=== PATIENT | male | born 1940 | race Caucasian/White ===

== ENCOUNTER → 2017-11-07 07:04 | Outpatient (CLI) | payer MEDICARE, OTHER, SELFPAY ==
[2017-11-07 08:27] LABS: Add Manual Diff / Slide Review NO; Basophils Percent Auto 0.8 % (0-2); Eosinophils Percent Auto 12.7 % (2-4); Hematocrit 44.5 % (41-53); Hemoglobin 15.1 g/dL (13.5-17.5); Lymphocytes Percent Auto 20.9 % (25-40); Mean Corpuscular HGB Conc 33.8 % (30-36); Mean Corpuscular Volume 88.6 fL (80-100); Monocytes Percent Auto 11.7 % (3-14); Neutrophils Absolute Auto 4100 /uL (3000-5900); Neutrophils Percent Auto 53.9 % (50-75); Platelet Count 207 X10^3/uL (150-400); Red Blood Cell Count 5.02 X10^6/uL (4.5-5.9); Red Cell Distribution Width 13.8 % (11.6-14.8); White Blood Cell Count 7.5 X10^3/uL (4.5-11.0)
[2017-11-07 09:41] LABS: Alanine Aminotransferase 32 IU/L (21-72); Albumin 4.3 g/dL (3.5-5.0); Albumin Globulin Ratio 1.6 (1.0-2.8); Alkaline Phosphatase 93 U/L (38-126); Aspartate Aminotransferase 33 IU/L (17-59); BUN Creatinine Ratio 19.1 (6-22); Bilirubin Total 0.7 mg/dL (0.2-1.3); Blood Urea Nitrogen 21 mg/dL (9-20); Calcium 9.7 mg/dL (8.4-10.2); Carbon Dioxide 29 mmol/L (22-32); Chloride 99 mmol/L (98-107); Cholesterol 132 mg/dL (140-199); Estimated Glomerular Filt Rate > 60.0 mL/min (>60); Globulin 2.7 g/dL (1.7-4.1); Glucose 90 mg/dL (80-110); HDL Cholesterol 62 mg/dL (40-60); HEMOLYSIS < 15 (0-50); LDL Cholesterol Calculated 53 mg/dL (<100); Potassium 4.9 mmol/L (3.4-5.1); Sodium 138 mmol/L (137-145); Triglycerides 83 mg/dL (35-150)
[2017-11-07 10:13] LABS: Prostate Specific Antigen Scrn 4.47 ng/mL (0.1-4.0)
== END ==
PROVIDERS: PCP Family Medicine; Visit Provider Family Medicine
DX: E78.2 Mixed hyperlipidemia (principal); Z12.5 Encounter for screening for malignant neoplasm of prostate
CPT/HCPCS: 36415; 80053; 80061; 84443; 85025; G0103

== ENCOUNTER → 2018-01-02 12:18 | Outpatient (CLI) | payer MEDICARE, OTHER, SELFPAY ==
[2018-01-02 13:25] LABS: Thyroid Stimulating Hormone 2.86 uIU/mL (0.47-4.68)
[2018-01-05 15:44] LABS: PSA Free % 9 % (calc) (> 25); PSA, Total 3.4 ng/mL (< 4.1)
== END ==
PROVIDERS: PCP Family Medicine; Visit Provider Family Medicine
DX: R94.6 Abnormal results of thyroid function studies (principal)
CPT/HCPCS: 36415; 84153; 84154; 84443

== ENCOUNTER → 2018-07-05 07:35 | Outpatient (CLI) | payer MEDICARE, OTHER, SELFPAY ==
[2018-07-05 09:43] LABS: Thyroid Stimulating Hormone 2.56 uIU/mL (0.47-4.68)
== END ==
PROVIDERS: PCP Family Medicine; Visit Provider Family Medicine
DX: R94.6 Abnormal results of thyroid function studies (principal)
CPT/HCPCS: 36415; 84443

== ENCOUNTER → 2018-07-11 10:10 | Outpatient (CLI) | payer MEDICARE, OTHER, SELFPAY ==
--- NOTE | 2018-07-11 10:12 | DI.RAD.S_ITS ---
PROCEDURE: XR SHOULDER LT MIN 2V INDICATIONS: L shoulder imingement TECHNIQUE: 3 views of the shoulder were acquired. COMPARISON: None. FINDINGS: Bones: No fractures or dislocations. No suspicious bony lesions. Visualized ribs appear intact. There is moderate hyperostosis at the a.c. 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 Soft tissues: No suspicious soft tissue calcifications. 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 Dictated by: Jc Alex M.D. on 07/11/2018 at 10:34 Approved by: Jc Alex M.D. on 07/11/2018 at 10:34
== END ==
PROVIDERS: PCP Family Medicine; Visit Provider Hospitalist
DX: M75.42 Impingement syndrome of left shoulder (principal); M25.512 Pain in left shoulder
CPT/HCPCS: 73030

== ENCOUNTER 2018-09-07 09:00 | Outpatient (RCR) | payer MEDICARE, OTHER, SELFPAY ==
--- NOTE | 2018-08-09 16:14 | PT.OPPOC ---
Current Diagnoses Pain in left shoulder (08/09/18) Abnormal posture (08/09/18) Weakness (08/09/18) Provider Visit Care Team Role Provider Type Alexandro Georges MD Primary Care Provider Physician Specialty: Family Practice Address: [address] [place] [address], [id number] Email: [email or web address] Jesi Tarango MD Attending Provider Physician Specialty: Internal Medicine Address: [address] [place] [address], [id number] Email: Plan Of Care PT-OP-T Assessment and Plan Start: 08/09/18 15:16 Freq: Status: Active Protocol: Document 08/09/18 15:16 SAK (Rec: 08/10/18 16:13 SAK [id number]) Physical Therapy Assessment Rehab Potential Rehabilitation Potential Good Evaluation Complexity Number of Personal Factors/Comorbidities 1-2 Number of Body Systems Impaired 3 Clinical Presentation at Evaluation Stable Impairments Impairments Activity Tolerance Pain ROM Strength Goals Three Impairment weakness Alf Goal (LTG) Patient strength right shoulder 5/5 LTG Duration 10/09/18 Two Impairment has had to modify usual workout at gym due to pain Short Term Goal (STG) Patient able to tolerate HEP for shoulder strengthening and ROM without pain STG Duration 09/09/18 Tractor Operator Battery Goal (LTG) Patient to return to weight- lifting at gym without pain, demonstrating safe and correct form LTG Duration 10/09/18 One Impairment unable to reach overhead, out to the side, or behind his back Alf Goal (LTG) Patient able to reach overhead and behind his back for purposes of daily activities with full motion and without c /o pain. LTG Duration 10/09/18 Assessment Summary Assessment Patient presents to PT with function-limiting left shoulder pain after injury while lifting weights. He has signs and symptoms of left shoulder impingement with RC involvement. Feel postural dysfunction with forward head, rounded shoulders, protracted scapulae is contributory, as well as decreased general mobility throughout his thoracic spine and weakness of posterior chain musculature causing abnormal functioning of his left shoulder. Will benefit from PT to address these impairments and return to his active lifestyle safely . Physical Therapy Plan Frequency and Duration Frequency of Treatment 2x/Week Duration of Treatment 8 wks Plan of Care Start Date 08/09/18 Plan of Care End Date 10/09/18 Therapeutic Interventions Therapeutic Interventions Home Exercise Program Joint Mobilizations Manual Therapy Neuromuscular Re-education Patient/Caregiver Education Self-Care/Home Management Soft Tissue Mobilization Taping Therapeutic Activities Therapeutic Exercises Modalities Cold Pack/Ice Massage Electric Stimulation Hot Packs Iontophoresis Ultrasound Next Visit Focus/Plan Next Note Type Treatment Note Next Visit Plan Review HEP, postural education , ther ex for postural correction, shoulder ROM, shoulder and thoracic extension strengthening. Modalities as needed. Plan of Care Dates Plan of Care Start Date 08/09/18 Plan of Care End Date 10/09/18 Please Sign and Return: I have reviewed this Plan of Care and certify that the skilled therapy services above are required to meet the patient?s needs. Physician Signature Date Printed Name and Credentials Clinical Instructor Signature Printed Name and Credentials
--- NOTE | 2018-08-09 16:14 | PT.OIE ---
Current Diagnoses Pain in left shoulder (08/09/18) Abnormal posture (08/09/18) Weakness (08/09/18) Provider Visit Care Team Role Provider Type Alexandro Georges MD Primary Care Provider Physician Specialty: Family Practice Address: [address] [place] [address], [id number] Email: [email or web address] Jesi Tarango MD Attending Provider Physician Specialty: Internal Medicine Address: [address] [place] [address], [id number] Email: Physical Therapy Initial Evaluation PT-OP-A Visit Information Start: 08/09/18 15:16 Freq: Status: Active Protocol: Document 08/09/18 15:16 SAK (Rec: 08/10/18 16:13 SAK [id number]) Out-Patient Physical Therapy Visit Information Visit Information Visit Type Initial Evaluation Visit Start Time 15:15 Visit Stop Time 16:10 Total Visit Minutes 55 Visit Number 1 Number of LAB RN Visits 0 Evaluation Information Evaluation Date 08/09/18 Precautions Precautions [id number] PT-OP-B Current Condition Start: 08/09/18 15:16 Freq: Status: Active Protocol: Document 08/09/18 15:16 SAK (Rec: 08/09/18 16:02 SAK [id number]) Current Condition History of Current Condition Onset Date 2 months ago Current Complaints left shoulder pain History of Current Condition Was at gym, was doing standing chest press on cable machine with increased weight because he was feeling good. Has taken Alleve and used [place]. Iced for awhile but has quit. Some improvement since initial injury, but still hard to reach overhead or out to side. Still going to gym but has modified his exercises. Prior pain left shoulder 7-8 yrs ago, got better on its own . Denies numbness or tingling . Prior Treatments and Tests x-ray: No fractures or dislocations. 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 Treatment Goals Patient/Caregiver Goals Eliminate pain and return to full functional use of his left UE. Prior Functional Status Baseline Function- ADL's Independent Baseline Function- Mobility Independent Baseline Function- Gait independent no device Baseline Function- Work/School retired, able to use household tasks without difficulty Baseline Function- Recreation/Hobbies weight-lifting, gardening no restrictions Current Functional Impairments (Reported) Functional Limitations- ADL's painful Functional Limitations- Mobility/Gait independent no device Functional Limitations- Work/School household tasks requiring reaching overhead or out to side are painful, unable to do some Functional Limitations- Recreation/ Has modified weight-lifting ex Hobbies , some pain with gardening PT-OP-C Subjective Start: 08/09/18 15:16 Freq: Status: Active Protocol: Document 08/09/18 15:16 SAK (Rec: 08/10/18 16:13 [facility] [id number]) Patient Questionnaires Quick Dash- Upper Extremity Quick Dash UE Score 18 OP-PT Pain Assessment Location left shoulder Intensity 4 Scale Used Numeric (1 - 10) Description Aching Pressure Sharp Tender With Movement Frequency Frequent Pain Aggravating Factors Activity Other Pain Aggravating Factors reaching overhead, out to side , behind back Pain Alleviating Factors Inactivity Position Home Pain Medication Use Pain Medications Used No PT-OP-E Functional Tests Start: 08/09/18 15:16 Freq: Status: Active Protocol: Document 08/09/18 15:16 SAK (Rec: 08/10/18 16:13 [facility] [id number]) Functional Tests Apley's Scratch Test Action 1: The subject is instructed to touch the opposite shoulder with his/her hand. This motion checks Glenohumeral adduction, internal rotation , horizontal adduction and scapular protraction Action 2: The subject is instructed to place his/her arm overhead and reach behind the neck to touch his/her upper back. This motion checks Glenohumeral abduction, external rotation and scapular upward rotation and elevation. Action 3: The subject puts his/her hand on the lower back and reaches upward as far as possible. This motion checks glenohumeral adduction, internal rotation and scapular retraction with downward rotation Action 1- Left front of shoulder Action 1- Right back of shoulder Action 2- Left side of neck Action 2- Right T3 Action 3- Left L2 Action 3- Right T10 PT-OP-F Manual Assessment Start: 08/09/18 15:16 Freq: Status: Active Protocol: Document 08/09/18 15:16 SAK (Rec: 08/10/18 16:13 SAK [id number]) Manual Assessments Joint Mobility Assessment Joint Mobility Assessment Decreased inferior glide and posterior glide left shoulder PT-OP-H Neuro Start: 08/09/18 15:16 Freq: Status: Active Protocol: Document 08/09/18 15:16 SAK (Rec: 08/10/18 16:13 SAK [id number]) Sensation Evaluation Gross Sensation Gross Sensation WNL PT-OP-J Posture/Palpation/Skin Start: 08/09/18 15:16 Freq: Status: Active Protocol: Document 08/09/18 15:16 SAK (Rec: 08/10/18 16:13 SAK [id number]) Posture Evaluation Position Sitting Head/C-Spine Posture Forward Head T-Spine Posture Increased Kyphosis L-Spine Posture Flattened Shoulder Posture (L) Rounded (R) Rounded (L) Forward (R) Forward Scapula Posture (R) Protracted (L) Retracted Arm Posture (L) Internally Rotated (R) Internally Rotated Palpation Assessment Location left shoulder Palpation Location left RC insertion Palpation Findings Tenderness PT-OP-K Range of Motion Start: 08/09/18 15:16 Freq: Status: Active Protocol: Document 08/09/18 15:16 SAK (Rec: 08/10/18 16:13 [facility] [id number]) Cervical Spine Range of Motion Cervical Spine Active Comments WNL Shoulder Goniometric Range of Motion Shoulder Measured in Degrees Left Active Shoulder ROM WFL No Flexion 120 Extension 20 Abduction 115 External Rotation at 45 degrees 65 Abduction Internal Rotation 50 right Shoulder ROM WFL Yes External Rotation at 45 degrees 90 Abduction Internal Rotation 65 PT-OP-L Special Tests Start: 08/09/18 15:16 Freq: Status: Active Protocol: Document 08/09/18 15:16 SAK (Rec: 08/10/18 16:13 SAK [id number]) Special Tests Shoulder Special Tests IR/Horizontal ADD Impingement Test Results positive left [place] Impingement Test Results positive left Elevation Impingement Test Results positive left PT-OP-M Strength Start: 08/09/18 15:16 Freq: Status: Active Protocol: Document 08/09/18 15:16 SAK (Rec: 08/10/18 16:13 SAK [id number]) Shoulder Strength Shoulder Manual Muscle Testing Left Flexion 3- Fair- Extension 4- Good- Abduction (C5) 3- Fair- External Rotation 4- Good- Internal Rotation 4+ Good+ Right Flexion 5 Normal Extension 5 Normal Abduction (C5) 5 Normal External Rotation 5 Normal Internal Rotation 5 Normal Elbow/Forearm Strength Elbow and Forearm Manual Muscle Testing dusty Flexion (C6) 5 Normal Extension (C7) 5 Normal PT-OP-Q Treatments Start: 08/09/18 15:16 Freq: Status: Active Protocol: Document 08/09/18 15:16 [facility] (Rec: 08/10/18 16:13 [facility] [id number]) Self-Care/Home Management Treatment Education Patient Education Home Exercise Program PT-OP-R Modalities Start: 08/09/18 15:16 Freq: Status: Active Protocol: Document 08/09/18 15:16 [facility] (Rec: 08/10/18 16:13 [facility] [id number]) Hot Pack/Cold Pack Treatment Cold Pack Location left shoulder Patient Position Hooklying Treatment Duration (minutes) 10 Patient Tolerance Good PT-OP-T Assessment and Plan Start: 08/09/18 15:16 Freq: Status: Active Protocol: Document 08/09/18 15:16 [facility] (Rec: 08/10/18 16:13 [facility] [id number]) Physical Therapy Assessment Rehab Potential Rehabilitation Potential Good Evaluation Complexity Number of Personal Factors/Comorbidities 1-2 Number of Body Systems Impaired 3 Clinical Presentation at Evaluation Stable Impairments Impairments Activity Tolerance Pain ROM Strength Goals Three Impairment weakness Care Home Goal (LTG) Patient strength right shoulder 5/5 LTG Duration 10/09/18 Two Impairment has had to modify usual workout at gym due to pain Short Term Goal (STG) Patient able to tolerate HEP for shoulder strengthening and ROM without pain STG Duration 09/09/18 Care Home Goal (LTG) Patient to return to weight- lifting at gym without pain, demonstrating safe and correct form LTG Duration 10/09/18 One Impairment unable to reach overhead, out to the side, or 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 LTG Duration 10/09/18 Assessment Summary Assessment Patient presents to PT with function-limiting left shoulder pain after injury while lifting weights. He has signs and symptoms of left shoulder impingement with RC involvement. Feel postural dysfunction with forward head, rounded shoulders, protracted scapulae is contributory, as well as decreased general mobility throughout his thoracic spine and weakness of posterior chain musculature causing abnormal functioning of his left shoulder. Will benefit from PT to address these impairments and return to his active lifestyle safely . Physical Therapy Plan Frequency and Duration Frequency of Treatment 2x/Week Duration of Treatment 8 wks Plan of Care Start Date 08/09/18 Plan of Care End Date 10/09/18 Therapeutic Interventions Therapeutic Interventions Home Exercise Program Joint Mobilizations Manual Therapy Neuromuscular Re-education Patient/Caregiver Education Self-Care/Home Management Soft Tissue Mobilization Taping Therapeutic Activities Therapeutic Exercises Modalities Cold Pack/Ice Massage Electric Stimulation Hot Packs Iontophoresis Ultrasound Next Visit Focus/Plan Next Note Type Treatment Note Next Visit Plan Review HEP, postural education , ther ex for postural correction, shoulder ROM, shoulder and thoracic extension strengthening. Modalities as needed.
--- NOTE | 2018-08-14 17:10 | PT.OTN ---
Current Diagnoses Pain in left shoulder (08/14/18) Physical Therapy Treatment Note PT-OP-A Visit Information Start: 08/09/18 15:16 Freq: Status: Active Protocol: Document 08/14/18 12:20 EA (Rec: 08/14/18 12:56 EA [id number]) Out-Patient Physical Therapy Visit Information Visit Information Visit Type Treatment Note Visit Start Time 12:15 Visit Stop Time 13:00 Total Visit Minutes 53 Visit Number 2 PT-OP-B Current Condition Start: 08/09/18 15:16 Freq: Status: Active Protocol: Document 08/09/18 15:16 SAK (Rec: 08/09/18 16:02 SAK [id number]) Current Condition History of Current Condition Onset Date 2 months ago Current Complaints left shoulder pain History of Current Condition Was at gym, was doing standing chest press on cable machine with increased weight because he was feeling good. Has taken Alleve and used [place]. Iced for awhile but has quit. Some improvement since initial injury, but still hard to reach overhead or out to side. Still going to gym but has modified his exercises. Prior pain left shoulder 7-8 yrs ago, got better on its own . Denies numbness or tingling . Prior Treatments and Tests x-ray: No fractures or dislocations. 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 Treatment Goals Patient/Caregiver Goals Eliminate pain and return to full functional use of his left UE. Prior Functional Status Baseline Function- ADL's Independent Baseline Function- Mobility Independent Baseline Function- Gait independent no device Baseline Function- Work/School retired, able to use household tasks without difficulty Baseline Function- Recreation/Hobbies weight-lifting, gardening no restrictions Current Functional Impairments (Reported) Functional Limitations- ADL's painful Functional Limitations- Mobility/Gait independent no device Functional Limitations- Work/School household tasks requiring reaching overhead or out to side are painful, unable to do some Functional Limitations- Recreation/ Has modified weight-lifting ex Hobbies , some pain with gardening PT-OP-C Subjective Start: 08/09/18 15:16 Freq: Status: Active Protocol: Document 08/14/18 12:20 EA (Rec: 08/14/18 12:56 EA [id number]) OP-PT Subjective Patient Comments Patient Comments Pt reports back to gym and perform all exercises except cable chest press; states unable to sleep to left shoulder side but pain does not bother while sleeping on his back. PT-OP-E Functional Tests Start: 08/09/18 15:16 Freq: Status: Active Protocol: Document 08/09/18 15:16 SAK (Rec: 08/10/18 16:13 SAK [id number]) Functional Tests Apley's Scratch Test Action 1: The subject is instructed to touch the opposite shoulder with his/her hand. This motion checks Glenohumeral adduction, internal rotation , horizontal adduction and scapular protraction Action 2: The subject is instructed to place his/her arm overhead and reach behind the neck to touch his/her upper back. This motion checks Glenohumeral abduction, external rotation and scapular upward rotation and elevation. Action 3: The subject puts his/her hand on the lower back and reaches upward as far as possible. This motion checks glenohumeral adduction, internal rotation and scapular retraction with downward rotation Action 1- Left front of shoulder Action 1- Right back of shoulder Action 2- Left side of neck Action 2- Right T3 Action 3- Left L2 Action 3- Right T10 PT-OP-F Manual Assessment Start: 08/09/18 15:16 Freq: Status: Active Protocol: Document 08/09/18 15:16 SAK (Rec: 08/10/18 16:13 SAK [id number]) Manual Assessments Joint Mobility Assessment Joint Mobility Assessment Decreased inferior glide and posterior glide left shoulder PT-OP-H Neuro Start: 08/09/18 15:16 Freq: Status: Active Protocol: Document 08/09/18 15:16 SAK (Rec: 08/10/18 16:13 SAK [id number]) Sensation Evaluation Gross Sensation Gross Sensation WNL PT-OP-J Posture/Palpation/Skin Start: 08/09/18 15:16 Freq: Status: Active Protocol: Document 08/09/18 15:16 SAK (Rec: 08/10/18 16:13 SAK [id number]) Posture Evaluation Position Sitting Head/C-Spine Posture Forward Head T-Spine Posture Increased Kyphosis L-Spine Posture Flattened Shoulder Posture (L) Rounded (R) Rounded (L) Forward (R) Forward Scapula Posture (R) Protracted (L) Retracted Arm Posture (L) Internally Rotated (R) Internally Rotated Palpation Assessment Location left shoulder Palpation Location left RC insertion Palpation Findings Tenderness PT-OP-K Range of Motion Start: 08/09/18 15:16 Freq: Status: Active Protocol: Document 08/09/18 15:16 SAK (Rec: 08/10/18 16:13 SAK [id number]) Cervical Spine Range of Motion Cervical Spine Active Comments WNL Shoulder Goniometric Range of Motion Shoulder Measured in Degrees Left Active Shoulder ROM WFL No Flexion 120 Extension 20 Abduction 115 External Rotation at 45 degrees 65 Abduction Internal Rotation 50 right Shoulder ROM WFL Yes External Rotation at 45 degrees 90 Abduction Internal Rotation 65 PT-OP-L Special Tests Start: 08/09/18 15:16 Freq: Status: Active Protocol: Document 08/09/18 15:16 SAK (Rec: 08/10/18 16:13 SAK [id number]) Special Tests Shoulder Special Tests IR/Horizontal ADD Impingement Test Results positive left [place] Impingement Test Results positive left Elevation Impingement Test Results positive left PT-OP-M Strength Start: 08/09/18 15:16 Freq: Status: Active Protocol: Document 08/09/18 15:16 SAK (Rec: 08/10/18 16:13 SAK [id number]) Shoulder Strength Shoulder Manual Muscle Testing Left Flexion 3- Fair- Extension 4- Good- Abduction (C5) 3- Fair- External Rotation 4- Good- Internal Rotation 4+ Good+ Right Flexion 5 Normal Extension 5 Normal Abduction (C5) 5 Normal External Rotation 5 Normal Internal Rotation 5 Normal Elbow/Forearm Strength Elbow and Forearm Manual Muscle Testing dusty Flexion (C6) 5 Normal Extension (C7) 5 Normal PT-OP-Q Treatments Start: 08/09/18 15:16 Freq: Status: Active Protocol: Document 08/14/18 12:58 EA (Rec: 08/14/18 13:03 EA [id number]) Cardio Equipment Upper Body Ergometer (UBE) Duration (Minutes) 5 Height 5 Gym Equipment Cable Column (Body Solid) 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 Resistance 30# Reps/Time x 15 reps Lat Pull Down Resistance 30# Reps/Time x15 reps x 2 Therapeutic Exercises Prone Exercises 1 Prone Exercise Name T-ball: thoracic ext, shoulder T- and Y (scap adduction) Side bilateral Reps/Minutes x 15 reps Standing Exercises 1 Standing Exercise Name wall posture: T-bar shoulder flexion Side bilateral Reps/Minutes x 15 reps Comments pain free range Manual Therapy Treatment Soft Tissue Mobilization 1 Body Location anterior shoulder RTC insertion Mobilization Type Cross-Friction Myofascial Release Intensity/Depth Moderate Body Position Hooklying PT-OP-R Modalities Start: 08/09/18 15:16 Freq: Status: Active Protocol: Document 08/14/18 12:58 EA (Rec: 08/14/18 13:03 EA [id number]) Hot Pack/Cold Pack Treatment Cold Pack Location left shoulder Patient Position Hooklying Treatment Duration (minutes) 10 Patient Tolerance Good Ultrasound Therapy Treatment Left Anterior Shoulder Treatment Duration (minutes) 8 Patient Position Supine Coupling Medium Ultrasound Gel Frequency Setting (mHz) 1 Mode Setting Pulsed Duty Cycle 50% Intensity Setting (w/cm2) 1.2 PT-OP-T Assessment and Plan Start: 08/09/18 15:16 Freq: Status: Active Protocol: Document 08/14/18 12:58 EA (Rec: 08/14/18 13:03 EA [id number]) Physical Therapy Assessment Assessment Summary Assessment Pt requires constant verbal and tactile cues for posture during shoulder exercises. Physical Therapy Plan Next Visit Focus/Plan Next Note Type Treatment Note
--- NOTE | 2018-08-17 15:19 | PT.OTN ---
Current Diagnoses Pain in left shoulder (08/17/18) Physical Therapy Treatment Note PT-OP-A Visit Information Start: 08/09/18 15:16 Freq: Status: Active Protocol: Document 08/17/18 15:07 EA (Rec: 08/17/18 15:17 EA [id number]) Out-Patient Physical Therapy Visit Information Visit Information Visit Type Treatment Note Visit Start Time 14:30 Visit Stop Time 15:15 Visit Number 3 PT-OP-B Current Condition Start: 08/09/18 15:16 Freq: Status: Active Protocol: Document 08/09/18 15:16 SAK (Rec: 08/09/18 16:02 SAK [id number]) Current Condition History of Current Condition Onset Date 2 months ago Current Complaints left shoulder pain History of Current Condition Was at gym, was doing standing chest press on cable machine with increased weight because he was feeling good. Has taken Alleve and used [employer]. Iced for awhile but has quit. Some improvement since initial injury, but still hard to reach overhead or out to side. Still going to gym but has modified his exercises. Prior pain left shoulder 7-8 yrs ago, got better on its own . Denies numbness or tingling . Prior Treatments and Tests x-ray: No fractures or dislocations. 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 Treatment Goals Patient/Caregiver Goals Eliminate pain and return to full functional use of his left UE. Prior Functional Status Baseline Function- ADL's Independent Baseline Function- Mobility Independent Baseline Function- Gait independent no device Baseline Function- Work/School retired, able to use household tasks without difficulty Baseline Function- Recreation/Hobbies weight-lifting, gardening no restrictions Current Functional Impairments (Reported) Functional Limitations- ADL's painful Functional Limitations- Mobility/Gait independent no device Functional Limitations- Work/School household tasks requiring reaching overhead or out to side are painful, unable to do some Functional Limitations- Recreation/ Has modified weight-lifting ex Hobbies , some pain with gardening PT-OP-C Subjective Start: 08/09/18 15:16 Freq: Status: Active Protocol: Document 08/17/18 15:07 CASEY (Rec: 08/17/18 15:17 [id number]) OP-PT Subjective Patient Comments Patient Comments Pt reports It's feeling a little better. PT-OP-E Functional Tests Start: 08/09/18 15:16 Freq: Status: Active Protocol: Document 08/09/18 15:16 [facility] (Rec: 08/10/18 16:13 [facility] [id number]) Functional Tests Apley's Scratch Test Action 1: The subject is instructed to touch the opposite shoulder with his/her hand. This motion checks Glenohumeral adduction, internal rotation , horizontal adduction and scapular protraction Action 2: The subject is instructed to place his/her arm overhead and reach behind the neck to touch his/her upper back. This motion checks Glenohumeral abduction, external rotation and scapular upward rotation and elevation. Action 3: The subject puts his/her hand on the lower back and reaches upward as far as possible. This motion checks glenohumeral adduction, internal rotation and scapular retraction with downward rotation Action 1- Left front of shoulder Action 1- Right back of shoulder Action 2- Left side of neck Action 2- Right T3 Action 3- Left L2 Action 3- Right T10 PT-OP-F Manual Assessment Start: 08/09/18 15:16 Freq: Status: Active Protocol: Document 08/09/18 15:16 [facility] (Rec: 08/10/18 16:13 [facility] [id number]) Manual Assessments Joint Mobility Assessment Joint Mobility Assessment Decreased inferior glide and posterior glide left shoulder PT-OP-H Neuro Start: 08/09/18 15:16 Freq: Status: Active Protocol: Document 08/09/18 15:16 [facility] (Rec: 08/10/18 16:13 [facility] [id number]) Sensation Evaluation Gross Sensation Gross Sensation WNL PT-OP-J Posture/Palpation/Skin Start: 08/09/18 15:16 Freq: Status: Active Protocol: Document 08/09/18 15:16 [facility] (Rec: 08/10/18 16:13 [facility] [id number]) Posture Evaluation Position Sitting Head/C-Spine Posture Forward Head T-Spine Posture Increased Kyphosis L-Spine Posture Flattened Shoulder Posture (L) Rounded (R) Rounded (L) Forward (R) Forward Scapula Posture (R) Protracted (L) Retracted Arm Posture (L) Internally Rotated (R) Internally Rotated Palpation Assessment Location left shoulder Palpation Location left RC insertion Palpation Findings Tenderness PT-OP-K Range of Motion Start: 08/09/18 15:16 Freq: Status: Active Protocol: Document 08/09/18 15:16 SAK (Rec: 08/10/18 16:13 SAK [id number]) Cervical Spine Range of Motion Cervical Spine Active Comments WNL Shoulder Goniometric Range of Motion Shoulder Measured in Degrees Left Active Shoulder ROM WFL No Flexion 120 Extension 20 Abduction 115 External Rotation at 45 degrees 65 Abduction Internal Rotation 50 right Shoulder ROM WFL Yes External Rotation at 45 degrees 90 Abduction Internal Rotation 65 PT-OP-L Special Tests Start: 08/09/18 15:16 Freq: Status: Active Protocol: Document 08/09/18 15:16 SAK (Rec: 08/10/18 16:13 SAK [id number]) Special Tests Shoulder Special Tests IR/Horizontal ADD Impingement Test Results positive left [place] Impingement Test Results positive left Elevation Impingement Test Results positive left PT-OP-M Strength Start: 08/09/18 15:16 Freq: Status: Active Protocol: Document 08/09/18 15:16 SAK (Rec: 08/10/18 16:13 SAK [id number]) Shoulder Strength Shoulder Manual Muscle Testing Left Flexion 3- Fair- Extension 4- Good- Abduction (C5) 3- Fair- External Rotation 4- Good- Internal Rotation 4+ Good+ Right Flexion 5 Normal Extension 5 Normal Abduction (C5) 5 Normal External Rotation 5 Normal Internal Rotation 5 Normal Elbow/Forearm Strength Elbow and Forearm Manual Muscle Testing dusty Flexion (C6) 5 Normal Extension (C7) 5 Normal PT-OP-Q Treatments Start: 08/09/18 15:16 Freq: Status: Active Protocol: Document 08/17/18 15:07 EA (Rec: 08/17/18 15:17 EA [id number]) Cardio Equipment Upper Body Ergometer (UBE) Duration (Minutes) 5 Height 5 Therapeutic Exercises Prone Exercises 1 Prone Exercise Name T-ball: thoracic ext, shoulder T- and Y (scap adduction) Side bilateral Reps/Minutes x 15 reps Standing Exercises 4 Standing Exercise Name Wall shoulder press: T-bar Resistance 2# Reps/Minutes x 12 reps 3 Standing Exercise Name T-bar Thoracic extension Reps/Minutes x 12 reps x 2 sets 2 Standing Exercise Name Shoulder ER/IR Resistance Lv 1 Reps/Minutes x 12 reps x 2 sets 1 Standing Exercise Name wall posture: T-bar shoulder flexion Side bilateral Resistance 2# Reps/Minutes x 15 reps x 2 sets Comments pain free range Manual Therapy Treatment Soft Tissue Mobilization 1 Body Location anteruior shoulder RTC insertion Mobilization Type Cross-Friction Myofascial Release Intensity/Depth Moderate Body Position Hooklying PT-OP-R Modalities Start: 08/09/18 15:16 Freq: Status: Active Protocol: Document 08/17/18 15:07 EA (Rec: 08/17/18 15:17 EA [id number]) Hot Pack/Cold Pack Treatment Cold Pack Location left shoulder Patient Position Hooklying Treatment Duration (minutes) 10 Patient Tolerance Good PT-OP-T Assessment and Plan Start: 08/09/18 15:16 Freq: Status: Active Protocol: Document 08/17/18 15:07 EA (Rec: 08/17/18 15:17 EA [id number]) Physical Therapy Assessment Assessment Summary Assessment Tolerated treatment well with mild discomfort during shoulder press. Physical Therapy Plan Next Visit Focus/Plan Next Note Type Treatment Note Next Visit Plan cont. with current plan.
--- NOTE | 2018-08-22 15:35 | PT.OTN ---
Current Diagnoses Pain in left shoulder (08/22/18) Physical Therapy Treatment Note PT-OP-A Visit Information Start: 08/09/18 15:16 Freq: Status: Active Protocol: Document 08/22/18 15:26 SA (Rec: 08/22/18 15:35 SA [id number]) Out-Patient Physical Therapy Visit Information Visit Information Visit Type Treatment Note Visit Start Time 15:18 Total Visit Minutes 48 Visit Number 4 Number of CLINICAL MEDICAL ASSISTANT Visits 1 PT-OP-B Current Condition Start: 08/09/18 15:16 Freq: Status: Active Protocol: Document 08/09/18 15:16 SAK (Rec: 08/09/18 16:02 SAK [id number]) Current Condition History of Current Condition Onset Date 2 months ago Current Complaints left shoulder pain History of Current Condition Was at gym, was doing standing chest press on cable machine with increased weight because he was feeling good. Has taken Alleve and used [place]. Iced for awhile but has quit. Some improvement since initial injury, but still hard to reach overhead or out to side. Still going to gym but has modified his exercises. Prior pain left shoulder 7-8 yrs ago, got better on its own . Denies numbness or tingling . Prior Treatments and Tests x-ray: No fractures or dislocations. 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 Treatment Goals Patient/Caregiver Goals Eliminate pain and return to full functional use of his left UE. Prior Functional Status Baseline Function- ADL's Independent Baseline Function- Mobility Independent Baseline Function- Gait independent no device Baseline Function- Work/School retired, able to use household tasks without difficulty Baseline Function- Recreation/Hobbies weight-lifting, gardening no restrictions Current Functional Impairments (Reported) Functional Limitations- ADL's painful Functional Limitations- Mobility/Gait independent no device Functional Limitations- Work/School household tasks requiring reaching overhead or out to side are painful, unable to do some Functional Limitations- Recreation/ Has modified weight-lifting ex Hobbies , some pain with gardening PT-OP-C Subjective Start: 08/09/18 15:16 Freq: Status: Active Protocol: Document 08/22/18 15:26 SA (Rec: 08/22/18 15:35 SA [id number]) OP-PT Subjective Patient Comments Patient Comments Pt states he is improving, was able to sleep on L side last night, Doing HEP daily. PT-OP-E Functional Tests Start: 08/09/18 15:16 Freq: Status: Active Protocol: Document 08/09/18 15:16 [facility] (Rec: 08/10/18 16:13 [facility] [id number]) Functional Tests Apley's Scratch Test Action 1: The subject is instructed to touch the opposite shoulder with his/her hand. This motion checks Glenohumeral adduction, internal rotation , horizontal adduction and scapular protraction Action 2: The subject is instructed to place his/her arm overhead and reach behind the neck to touch his/her upper back. This motion checks Glenohumeral abduction, external rotation and scapular upward rotation and elevation. Action 3: The subject puts his/her hand on the lower back and reaches upward as far as possible. This motion checks glenohumeral adduction, internal rotation and scapular retraction with downward rotation Action 1- Left front of shoulder Action 1- Right back of shoulder Action 2- Left side of neck Action 2- Right T3 Action 3- Left L2 Action 3- Right T10 PT-OP-F Manual Assessment Start: 08/09/18 15:16 Freq: Status: Active Protocol: Document 08/09/18 15:16 [facility] (Rec: 08/10/18 16:13 [facility] [id number]) Manual Assessments Joint Mobility Assessment Joint Mobility Assessment Decreased inferior glide and posterior glide left shoulder PT-OP-H Neuro Start: 08/09/18 15:16 Freq: Status: Active Protocol: Document 08/09/18 15:16 [facility] (Rec: 08/10/18 16:13 [facility] [id number]) Sensation Evaluation Gross Sensation Gross Sensation WNL PT-OP-J Posture/Palpation/Skin Start: 08/09/18 15:16 Freq: Status: Active Protocol: Document 08/09/18 15:16 [facility] (Rec: 08/10/18 16:13 [facility] [id number]) Posture Evaluation Position Sitting Head/C-Spine Posture Forward Head T-Spine Posture Increased Kyphosis L-Spine Posture Flattened Shoulder Posture (L) Rounded (R) Rounded (L) Forward (R) Forward Scapula Posture (R) Protracted (L) Retracted Arm Posture (L) Internally Rotated (R) Internally Rotated Palpation Assessment Location left shoulder Palpation Location left RC insertion Palpation Findings Tenderness PT-OP-K Range of Motion Start: 08/09/18 15:16 Freq: Status: Active Protocol: Document 08/09/18 15:16 SAK (Rec: 08/10/18 16:13 SAK [id number]) Cervical Spine Range of Motion Cervical Spine Active Comments WNL Shoulder Goniometric Range of Motion Shoulder Measured in Degrees Left Active Shoulder ROM WFL No Flexion 120 Extension 20 Abduction 115 External Rotation at 45 degrees 65 Abduction Internal Rotation 50 right Shoulder ROM WFL Yes External Rotation at 45 degrees 90 Abduction Internal Rotation 65 PT-OP-L Special Tests Start: 08/09/18 15:16 Freq: Status: Active Protocol: Document 08/09/18 15:16 SAK (Rec: 08/10/18 16:13 SAK [id number]) Special Tests Shoulder Special Tests IR/Horizontal ADD Impingement Test Results positive left [place] Impingement Test Results positive left Elevation Impingement Test Results positive left PT-OP-M Strength Start: 08/09/18 15:16 Freq: Status: Active Protocol: Document 08/09/18 15:16 [facility] (Rec: 08/10/18 16:13 [facility] [id number]) Shoulder Strength Shoulder Manual Muscle Testing Left Flexion 3- Fair- Extension 4- Good- Abduction (C5) 3- Fair- External Rotation 4- Good- Internal Rotation 4+ Good+ Right Flexion 5 Normal Extension 5 Normal Abduction (C5) 5 Normal External Rotation 5 Normal Internal Rotation 5 Normal Elbow/Forearm Strength Elbow and Forearm Manual Muscle Testing dusty Flexion (C6) 5 Normal Extension (C7) 5 Normal PT-OP-Q Treatments Start: 08/09/18 15:16 Freq: Status: Active Protocol: Document 08/22/18 15:26 SA (Rec: 08/22/18 15:35 SA [email or web address]) Cardio Equipment Upper Body Ergometer (UBE) Duration (Minutes) 5 RPM 65 Height fwd/bkw Gym Equipment Cable Column (Body Solid) Rows Details semi wide greenskeeper supervisor Resistance 30# Reps/Time x 15 reps Lat Pull Down Resistance 30# Reps/Time x15 reps x 2 Therapeutic Exercises Supine Exercises Serratus punch Side left Resistance 2# Reps/Minutes 15x Prone Exercises 1 Prone Exercise Name T-ball: thoracic ext, shoulder T- and Y (scap adduction) Side bilateral Reps/Minutes x 15 reps Standing Exercises 4 Standing Exercise Name Wall shoulder press: T-bar Resistance 2# Reps/Minutes 15x 3 Standing Exercise Name T-bar Thoracic extension Reps/Minutes x 12 reps x 2 sets 2 Standing Exercise Name Shoulder ER/IR Resistance Lv 2 Reps/Minutes x 12 reps x 2 sets Comments Cues for form 1 Standing Exercise Name wall posture: T-bar shoulder flexion Side bilateral Resistance 2# Reps/Minutes x 15 reps x 2 sets Comments pain free range Manual Therapy Treatment Soft Tissue Mobilization 1 Body Location anterior shoulder RTC insertion Mobilization Type Cross-Friction Myofascial Release Intensity/Depth Moderate Body Position Hooklying PT-OP-R Modalities Start: 08/09/18 15:16 Freq: Status: Active Protocol: Document 08/22/18 15:26 SA (Rec: 08/22/18 15:35 SA [email or web address]) Hot Pack/Cold Pack Treatment Cold Pack Location left shoulder Patient Position Hooklying Treatment Duration (minutes) 10 Patient Tolerance Good PT-OP-T Assessment and Plan Start: 08/09/18 15:16 Freq: Status: Active Protocol: Document 08/22/18 15:26 SA (Rec: 08/22/18 15:35 SA [email or web address]) Physical Therapy Assessment Assessment Summary Assessment Pt tolerated exercise well, has been doing a lot of yard work without L shld pain. Needs tactile cues for IR/ER and scap protraction exercise. Physical Therapy Plan Next Visit Focus/Plan Next Note Type Treatment Note Next Visit Plan Cont to progress shoulder strengthening program.
--- NOTE | 2018-08-29 14:50 | PT.OTN ---
Current Diagnoses Pain in left shoulder (09/01/18) Physical Therapy Treatment Note PT-OP-A Visit Information Start: 08/09/18 15:16 Freq: Status: Active Protocol: Document 08/29/18 13:44 LRN (Rec: 08/29/18 14:50 LRN [id number]) Out-Patient Physical Therapy Visit Information Visit Information Visit Type Treatment Note Visit Start Time 13:44 Visit Stop Time 14:32 Total Visit Minutes 48 Visit Number 5 Number of SALES COUNSELOR Visits 1 Evaluation Information Evaluation Date 08/09/18 Precautions Precautions [place] PT-OP-B Current Condition Start: 08/09/18 15:16 Freq: Status: Active Protocol: Document 08/09/18 15:16 SAK (Rec: 08/09/18 16:02 SAK [id number]) Current Condition History of Current Condition Onset Date 2 months ago Current Complaints left shoulder pain History of Current Condition Was at gym, was doing standing chest press on cable machine with increased weight because he was feeling good. Has taken Alleve and used [employer]. Iced for awhile but has quit. Some improvement since initial injury, but still hard to reach overhead or out to side. Still going to gym but has modified his exercises. Prior pain left shoulder 7-8 yrs ago, got better on its own . Denies numbness or tingling . Prior Treatments and Tests x-ray: No fractures or dislocations. 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 Treatment Goals Patient/Caregiver Goals Eliminate pain and return to full functional use of his left UE. Prior Functional Status Baseline Function- ADL's Independent Baseline Function- Mobility Independent Baseline Function- Gait independent no device Baseline Function- Work/School retired, able to use household tasks without difficulty Baseline Function- Recreation/Hobbies weight-lifting, gardening no restrictions Current Functional Impairments (Reported) Functional Limitations- ADL's painful Functional Limitations- Mobility/Gait independent no device Functional Limitations- Work/School household tasks requiring reaching overhead or out to side are painful, unable to do some Functional Limitations- Recreation/ Has modified weight-lifting ex Hobbies , some pain with gardening PT-OP-C Subjective Start: 08/09/18 15:16 Freq: Status: Active Protocol: Document 08/29/18 13:44 LRN (Rec: 08/29/18 14:50 LRN [id number]) OP-PT Subjective Patient Comments Patient Comments States he is better because the pain is less. PT-OP-E Functional Tests Start: 08/09/18 15:16 Freq: Status: Active Protocol: Document 08/09/18 15:16 SAK (Rec: 08/10/18 16:13 [facility] [id number]) Functional Tests Apley's Scratch Test Action 1: The subject is instructed to touch the opposite shoulder with his/her hand. This motion checks Glenohumeral adduction, internal rotation , horizontal adduction and scapular protraction Action 2: The subject is instructed to place his/her arm overhead and reach behind the neck to touch his/her upper back. This motion checks Glenohumeral abduction, external rotation and scapular upward rotation and elevation. Action 3: The subject puts his/her hand on the lower back and reaches upward as far as possible. This motion checks glenohumeral adduction, internal rotation and scapular retraction with downward rotation Action 1- Left front of shoulder Action 1- Right back of shoulder Action 2- Left side of neck Action 2- Right T3 Action 3- Left L2 Action 3- Right T10 PT-OP-F Manual Assessment Start: 08/09/18 15:16 Freq: Status: Active Protocol: Document 08/09/18 15:16 SAK (Rec: 08/10/18 16:13 [facility] [id number]) Manual Assessments Joint Mobility Assessment Joint Mobility Assessment Decreased inferior glide and posterior glide left shoulder PT-OP-H Neuro Start: 08/09/18 15:16 Freq: Status: Active Protocol: Document 08/09/18 15:16 SAK (Rec: 08/10/18 16:13 [facility] [id number]) Sensation Evaluation Gross Sensation Gross Sensation WNL PT-OP-J Posture/Palpation/Skin Start: 08/09/18 15:16 Freq: Status: Active Protocol: Document 08/09/18 15:16 SAK (Rec: 08/10/18 16:13 SAK [id number]) Posture Evaluation Position Sitting Head/C-Spine Posture Forward Head T-Spine Posture Increased Kyphosis L-Spine Posture Flattened Shoulder Posture (L) Rounded (R) Rounded (L) Forward (R) Forward Scapula Posture (R) Protracted (L) Retracted Arm Posture (L) Internally Rotated (R) Internally Rotated Palpation Assessment Location left shoulder Palpation Location left RC insertion Palpation Findings Tenderness PT-OP-K Range of Motion Start: 08/09/18 15:16 Freq: Status: Active Protocol: Document 08/09/18 15:16 SAK (Rec: 08/10/18 16:13 SAK [id number]) Cervical Spine Range of Motion Cervical Spine Active Comments WNL Shoulder Goniometric Range of Motion Shoulder Measured in Degrees Left Active Shoulder ROM WFL No Flexion 120 Extension 20 Abduction 115 External Rotation at 45 degrees 65 Abduction Internal Rotation 50 right Shoulder ROM WFL Yes External Rotation at 45 degrees 90 Abduction Internal Rotation 65 PT-OP-L Special Tests Start: 08/09/18 15:16 Freq: Status: Active Protocol: Document 08/09/18 15:16 SAK (Rec: 08/10/18 16:13 SAK [id number]) Special Tests Shoulder Special Tests IR/Horizontal ADD Impingement Test Results positive left [place] Impingement Test Results positive left Elevation Impingement Test Results positive left PT-OP-M Strength Start: 08/09/18 15:16 Freq: Status: Active Protocol: Document 08/09/18 15:16 SAK (Rec: 08/10/18 16:13 [facility] [id number]) Shoulder Strength Shoulder Manual Muscle Testing Left Flexion 3- Fair- Extension 4- Good- Abduction (C5) 3- Fair- External Rotation 4- Good- Internal Rotation 4+ Good+ Right Flexion 5 Normal Extension 5 Normal Abduction (C5) 5 Normal External Rotation 5 Normal Internal Rotation 5 Normal Elbow/Forearm Strength Elbow and Forearm Manual Muscle Testing dusty Flexion (C6) 5 Normal Extension (C7) 5 Normal PT-OP-Q Treatments Start: 08/09/18 15:16 Freq: Status: Active Protocol: Document 08/29/18 13:44 LRN (Rec: 08/29/18 14:50 LRN [id number]) Cardio Equipment Upper Body Ergometer (UBE) Duration (Minutes) 6 RPM 65 Height fwd/bkw Gym Equipment Cable Column (Body Solid) 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 30# Reps/Time x 15 reps x 2 Lat Pull Down Resistance 30# Reps/Time x15 reps x 2 Therapeutic Exercises Supine Exercises Pec stretch Supine Exercise Name Pec stretch on 1/2 roll Side bilateral Equipment Used 1/2 roll Reps/Minutes Hold f/b 15x thoracic ext, 2 sets Comments AP of L scapula/thoracic wall (stab at scapula) during active thoracic ext Shoulder AB Supine Exercise Name shoulder AB with elbow flexed Side left Resistance Lev 1 T-Band Reps/Minutes 10x3 Serratus punch Side left Resistance 2# Reps/Minutes 10x3 Sitting Exercises Levator Scapula stretch Sitting Exercise Name Levator Scap stretch w/L arm behind back Side left Reps/Minutes 60 sec hold x 2 Comments Extra time taken to perform stretch properly. Thoracic Ext Sitting Exercise Name Thoacic ext with mirror for visual feedback Equipment Used Mirror Reps/Minutes 10 x 3 Comments Extra time for training of thoracic ext Other Exercises 4-Pt Thoracic Ext Other Exercise Name T2-T7 Thoracic ext Isometric Reps/Minutes 3' Comments Extra time taken for teaching of stretch Self-Care/Home Management Treatment Education Patient Education Home Exercise Program Activities Self-Care/Home Management Activities Issued & reviewed HEP: L Levater Scapular stretch & Pec stretch on/off 1/2 roll. PT-OP-R Modalities Start: 08/09/18 15:16 Freq: Status: Active Protocol: Document 08/29/18 13:44 LRN (Rec: 08/29/18 14:50 LRN [id number]) Hot Pack/Cold Pack Treatment Cold Pack Location left shoulder Patient Position Sitting Treatment Duration (minutes) 10 Patient Tolerance Good Comments Cryotherapy performed during production of HEP and review of HEP. PT-OP-T Assessment and Plan Start: 08/09/18 15:16 Freq: Status: Active Protocol: Document 08/29/18 13:44 LRN (Rec: 08/29/18 14:50 LRN [id number]) Physical Therapy Assessment Assessment Summary Assessment L posterior acromion pain posturally related. Pt needs further posture training/ strengthening to minimize soft tissue impingement, and improving L shoulder strength/ stability. Physical Therapy Plan Frequency and Duration Frequency of Treatment 2x/Week Duration of Treatment 8 wks Plan of Care Start Date 08/09/18 Plan of Care End Date 10/09/18 Therapeutic Interventions Therapeutic Interventions Home Exercise Program Joint Mobilizations Manual Therapy Neuromuscular Re-education Patient/Caregiver Education Self-Care/Home Management Soft Tissue Mobilization Taping Therapeutic Activities Therapeutic Exercises Modalities Cold Pack/Ice Massage Electric Stimulation Hot Packs Iontophoresis Ultrasound Next Visit Focus/Plan Next Note Type Treatment Note Next Visit Plan Cont to progress shouler strengthening program and improve posture at shoulder.
--- NOTE | 2018-08-29 14:50 | PT.OTN ---
Current Diagnoses Pain in left shoulder (08/29/18) Physical Therapy Treatment Note PT-OP-A Visit Information Start: 08/09/18 15:16 Freq: Status: Active Protocol: Document 08/29/18 13:44 LRN (Rec: 08/29/18 14:50 LRN [id number]) Out-Patient Physical Therapy Visit Information Visit Information Visit Type Treatment Note Visit Start Time 13:44 Visit Stop Time 14:32 Total Visit Minutes 48 Visit Number 5 Number of ORACLE ARCHITECT Visits 1 Evaluation Information Evaluation Date 08/09/18 Precautions Precautions [place] PT-OP-B Current Condition Start: 08/09/18 15:16 Freq: Status: Active Protocol: Document 08/09/18 15:16 SAK (Rec: 08/09/18 16:02 SAK [id number]) Current Condition History of Current Condition Onset Date 2 months ago Current Complaints left shoulder pain History of Current Condition Was at gym, was doing standing chest press on cable machine with increased weight because he was feeling good. Has taken Alleve and used [place]. Iced for awhile but has quit. Some improvement since initial injury, but still hard to reach overhead or out to side. Still going to gym but has modified his exercises. Prior pain left shoulder 7-8 yrs ago, got better on its own . Denies numbness or tingling . Prior Treatments and Tests x-ray: No fractures or dislocations. 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 Treatment Goals Patient/Caregiver Goals Eliminate pain and return to full functional use of his left UE. Prior Functional Status Baseline Function- ADL's Independent Baseline Function- Mobility Independent Baseline Function- Gait independent no device Baseline Function- Work/School retired, able to use household tasks without difficulty Baseline Function- Recreation/Hobbies weight-lifting, gardening no restrictions Current Functional Impairments (Reported) Functional Limitations- ADL's painful Functional Limitations- Mobility/Gait independent no device Functional Limitations- Work/School household tasks requiring reaching overhead or out to side are painful, unable to do some Functional Limitations- Recreation/ Has modified weight-lifting ex Hobbies , some pain with gardening PT-OP-C Subjective Start: 08/09/18 15:16 Freq: Status: Active Protocol: Document 08/29/18 13:44 LRN (Rec: 08/29/18 14:50 LRN [id number]) OP-PT Subjective Patient Comments Patient Comments States he is better because the pain is less. PT-OP-E Functional Tests Start: 08/09/18 15:16 Freq: Status: Active Protocol: Document 08/09/18 15:16 SAK (Rec: 08/10/18 16:13 [facility] [id number]) Functional Tests Apley's Scratch Test Action 1: The subject is instructed to touch the opposite shoulder with his/her hand. This motion checks Glenohumeral adduction, internal rotation , horizontal adduction and scapular protraction Action 2: The subject is instructed to place his/her arm overhead and reach behind the neck to touch his/her upper back. This motion checks Glenohumeral abduction, external rotation and scapular upward rotation and elevation. Action 3: The subject puts his/her hand on the lower back and reaches upward as far as possible. This motion checks glenohumeral adduction, internal rotation and scapular retraction with downward rotation Action 1- Left front of shoulder Action 1- Right back of shoulder Action 2- Left side of neck Action 2- Right T3 Action 3- Left L2 Action 3- Right T10 PT-OP-F Manual Assessment Start: 08/09/18 15:16 Freq: Status: Active Protocol: Document 08/09/18 15:16 SAK (Rec: 08/10/18 16:13 [facility] [id number]) Manual Assessments Joint Mobility Assessment Joint Mobility Assessment Decreased inferior glide and posterior glide left shoulder PT-OP-H Neuro Start: 08/09/18 15:16 Freq: Status: Active Protocol: Document 08/09/18 15:16 SAK (Rec: 08/10/18 16:13 [facility] [id number]) Sensation Evaluation Gross Sensation Gross Sensation WNL PT-OP-J Posture/Palpation/Skin Start: 08/09/18 15:16 Freq: Status: Active Protocol: Document 08/09/18 15:16 SAK (Rec: 08/10/18 16:13 SAK [id number]) Posture Evaluation Position Sitting Head/C-Spine Posture Forward Head T-Spine Posture Increased Kyphosis L-Spine Posture Flattened Shoulder Posture (L) Rounded (R) Rounded (L) Forward (R) Forward Scapula Posture (R) Protracted (L) Retracted Arm Posture (L) Internally Rotated (R) Internally Rotated Palpation Assessment Location left shoulder Palpation Location left RC insertion Palpation Findings Tenderness PT-OP-K Range of Motion Start: 08/09/18 15:16 Freq: Status: Active Protocol: Document 08/09/18 15:16 SAK (Rec: 08/10/18 16:13 SAK [id number]) Cervical Spine Range of Motion Cervical Spine Active Comments WNL Shoulder Goniometric Range of Motion Shoulder Measured in Degrees Left Active Shoulder ROM WFL No Flexion 120 Extension 20 Abduction 115 External Rotation at 45 degrees 65 Abduction Internal Rotation 50 right Shoulder ROM WFL Yes External Rotation at 45 degrees 90 Abduction Internal Rotation 65 PT-OP-L Special Tests Start: 08/09/18 15:16 Freq: Status: Active Protocol: Document 08/09/18 15:16 SAK (Rec: 08/10/18 16:13 SAK [id number]) Special Tests Shoulder Special Tests IR/Horizontal ADD Impingement Test Results positive left [place] Impingement Test Results positive left Elevation Impingement Test Results positive left PT-OP-M Strength Start: 08/09/18 15:16 Freq: Status: Active Protocol: Document 08/09/18 15:16 SAK (Rec: 08/10/18 16:13 [facility] [id number]) Shoulder Strength Shoulder Manual Muscle Testing Left Flexion 3- Fair- Extension 4- Good- Abduction (C5) 3- Fair- External Rotation 4- Good- Internal Rotation 4+ Good+ Right Flexion 5 Normal Extension 5 Normal Abduction (C5) 5 Normal External Rotation 5 Normal Internal Rotation 5 Normal Elbow/Forearm Strength Elbow and Forearm Manual Muscle Testing dusty Flexion (C6) 5 Normal Extension (C7) 5 Normal PT-OP-Q Treatments Start: 08/09/18 15:16 Freq: Status: Active Protocol: Document 08/29/18 13:44 LRN (Rec: 08/29/18 14:50 LRN [id number]) Cardio Equipment Upper Body Ergometer (UBE) Duration (Minutes) 6 RPM 65 Height fwd/bkw Gym Equipment Cable Column (Body Solid) 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 Resistance 30# Reps/Time x 15 reps x 2 Lat Pull Down Resistance 30# Reps/Time x15 reps x 2 Therapeutic Exercises Supine Exercises Pec stretch Supine Exercise Name Pec stretch on 1/2 roll Side bilateral Equipment Used 1/2 roll Reps/Minutes Hold f/b 15x thoracic ext, 2 sets Comments AP of L scapula/thoracic wall (stab at scapula) during active thoracic ext Shoulder AB Supine Exercise Name shoulder AB with elbow flexed Side left Resistance Lev 1 T-Band Reps/Minutes 10x3 Serratus punch Side left Resistance 2# Reps/Minutes 10x3 Sitting Exercises Levator Scapula stretch Sitting Exercise Name Levator Scap stretch w/L arm behind back Side left Reps/Minutes 60 sec hold x 2 Comments Extra time taken to perform stretch properly. Thoracic Ext Sitting Exercise Name Thoacic ext with mirror for visual feedback Equipment Used Mirror Reps/Minutes 10 x 3 Comments Extra time for training of thoracic ext Other Exercises 4-Pt Thoracic Ext Other Exercise Name T2-T7 Thoracic ext Isometric Reps/Minutes 3' Comments Extra time taken for teaching of stretch Self-Care/Home Management Treatment Education Patient Education Home Exercise Program Activities Self-Care/Home Management Activities Issued & reviewed HEP: L Levater Scapular stretch & Pec stretch on/off 1/2 roll. PT-OP-R Modalities Start: 08/09/18 15:16 Freq: Status: Active Protocol: Document 08/29/18 13:44 LRN (Rec: 08/29/18 14:50 LRN [id number]) Hot Pack/Cold Pack Treatment Cold Pack Location left shoulder Patient Position Sitting Treatment Duration (minutes) 10 Patient Tolerance Good Comments Cryotherapy performed during production of HEP and review of HEP. PT-OP-T Assessment and Plan Start: 08/09/18 15:16 Freq: Status: Active Protocol: Document 08/29/18 13:44 LRN (Rec: 08/29/18 14:50 LRN [id number]) Physical Therapy Assessment Assessment Summary Assessment L posterior acromion pain posturally related. Pt needs further posture training/ strengthening to minimize soft tissue impingement, and improving L [id number] strength/ stability. Physical Therapy Plan Frequency and Duration Frequency of Treatment 2x/Week Duration of Treatment 8 wks Plan of Care Start Date 08/09/18 Plan of Care End Date 10/09/18 Therapeutic Interventions Therapeutic Interventions Home Exercise Program Joint Mobilizations Manual Therapy Neuromuscular Re-education Patient/Caregiver Education Self-Care/Home Management Soft Tissue Mobilization Taping Therapeutic Activities Therapeutic Exercises Modalities Cold Pack/Ice Massage Electric Stimulation Hot Packs Iontophoresis Ultrasound Next Visit Focus/Plan Next Note Type Treatment Note Next Visit Plan Cont to progress shouler strengthening program and improve posture at shoulder.
--- NOTE | 2018-09-01 09:00 | PT.OTN ---
Current Diagnoses Pain in left shoulder (09/01/18) Physical Therapy Treatment Note PT-OP-A Visit Information Start: 08/09/18 15:16 Freq: Status: Active Protocol: Document 09/01/18 09:00 RCC (Rec: 09/01/18 16:32 RCC [id number]) Out-Patient Physical Therapy Visit Information Visit Information Visit Type Treatment Note Visit Start Time 09:00 Visit Stop Time 09:50 Total Visit Minutes 50 Visit Number 6 Number of [employer]AT[employer]IVER Visits 0 Evaluation Information Evaluation Date 08/09/18 Precautions Precautions ALEKNAGIK PT-OP-B Current Condition Start: 08/09/18 15:16 Freq: Status: Active Protocol: Document 08/09/18 15:16 SAK (Rec: 08/09/18 16:02 SAK [id number]) Current Condition History of Current Condition Onset Date 2 months ago Current Complaints left shoulder pain History of Current Condition Was at gym, was doing standing chest press on cable machine with increased weight because he was feeling good. Has taken Alleve and used [place]. Iced for awhile but has quit. Some improvement since initial injury, but still hard to reach overhead or out to side. Still going to gym but has modified his exercises. Prior pain left shoulder 7-8 yrs ago, got better on its own . Denies numbness or tingling . Prior Treatments and Tests x-ray: No fractures or dislocations. 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 Treatment Goals Patient/Caregiver Goals Eliminate pain and return to full functional use of his left UE. Prior Functional Status Baseline Function- ADL's Independent Baseline Function- Mobility Independent Baseline Function- Gait independent no device Baseline Function- Work/School retired, able to use household tasks without difficulty Baseline Function- Recreation/Hobbies weight-lifting, gardening no restrictions Current Functional Impairments (Reported) Functional Limitations- ADL's painful Functional Limitations- Mobility/Gait independent no device Functional Limitations- Work/School household tasks requiring reaching overhead or out to side are painful, unable to do some Functional Limitations- Recreation/ Has modified weight-lifting ex Hobbies , some pain with gardening PT-OP-C Subjective Start: 08/09/18 15:16 Freq: Status: Active Protocol: Document 09/01/18 09:00 RCC (Rec: 09/01/18 16:32 RCC [email or web address]) OP-PT Subjective Patient Comments Patient Comments Pt notes that he feels a lot better, but still not doing a lot of UE work at the gym. PT-OP-E Functional Tests Start: 08/09/18 15:16 Freq: Status: Active Protocol: Document 08/09/18 15:16 SAK (Rec: 08/10/18 16:13 SAK [id number]) Functional Tests Apley's Scratch Test Action 1: The subject is instructed to touch the opposite shoulder with his/her hand. This motion checks Glenohumeral adduction, internal rotation , horizontal adduction and scapular protraction Action 2: The subject is instructed to place his/her arm overhead and reach behind the neck to touch his/her upper back. This motion checks Glenohumeral abduction, external rotation and scapular upward rotation and elevation. Action 3: The subject puts his/her hand on the lower back and reaches upward as far as possible. This motion checks glenohumeral adduction, internal rotation and scapular retraction with downward rotation Action 1- Left front of shoulder Action 1- Right back of shoulder Action 2- Left side of neck Action 2- Right T3 Action 3- Left L2 Action 3- Right T10 PT-OP-F Manual Assessment Start: 08/09/18 15:16 Freq: Status: Active Protocol: Document 08/09/18 15:16 SAK (Rec: 08/10/18 16:13 SAK [id number]) Manual Assessments Joint Mobility Assessment Joint Mobility Assessment Decreased inferior glide and posterior glide left shoulder PT-OP-H Neuro Start: 08/09/18 15:16 Freq: Status: Active Protocol: Document 08/09/18 15:16 SAK (Rec: 08/10/18 16:13 SAK [id number]) Sensation Evaluation Gross Sensation Gross Sensation WNL PT-OP-J Posture/Palpation/Skin Start: 08/09/18 15:16 Freq: Status: Active Protocol: Document 08/09/18 15:16 SAK (Rec: 08/10/18 16:13 SAK [id number]) Posture Evaluation Position Sitting Head/C-Spine Posture Forward Head T-Spine Posture Increased Kyphosis L-Spine Posture Flattened Shoulder Posture (L) Rounded (R) Rounded (L) Forward (R) Forward Scapula Posture (R) Protracted (L) Retracted Arm Posture (L) Internally Rotated (R) Internally Rotated Palpation Assessment Location left shoulder Palpation Location left RC insertion Palpation Findings Tenderness PT-OP-K Range of Motion Start: 08/09/18 15:16 Freq: Status: Active Protocol: Document 08/09/18 15:16 SAK (Rec: 08/10/18 16:13 SAK [id number]) Cervical Spine Range of Motion Cervical Spine Active Comments WNL Shoulder Goniometric Range of Motion Shoulder Measured in Degrees Left Active Shoulder ROM WFL No Flexion 120 Extension 20 Abduction 115 External Rotation at 45 degrees 65 Abduction Internal Rotation 50 right Shoulder ROM WFL Yes External Rotation at 45 degrees 90 Abduction Internal Rotation 65 PT-OP-L Special Tests Start: 08/09/18 15:16 Freq: Status: Active Protocol: Document 08/09/18 15:16 SAK (Rec: 08/10/18 16:13 SAK [id number]) Special Tests Shoulder Special Tests IR/Horizontal ADD Impingement Test Results positive left [place] Impingement Test Results positive left Elevation Impingement Test Results positive left PT-OP-M Strength Start: 08/09/18 15:16 Freq: Status: Active Protocol: Document 08/09/18 15:16 SAK (Rec: 08/10/18 16:13 SAK [id number]) Shoulder Strength Shoulder Manual Muscle Testing Left Flexion 3- Fair- Extension 4- Good- Abduction (C5) 3- Fair- External Rotation 4- Good- Internal Rotation 4+ Good+ Right Flexion 5 Normal Extension 5 Normal Abduction (C5) 5 Normal External Rotation 5 Normal Internal Rotation 5 Normal Elbow/Forearm Strength Elbow and Forearm Manual Muscle Testing dusty Flexion (C6) 5 Normal Extension (C7) 5 Normal PT-OP-Q Treatments Start: 08/09/18 15:16 Freq: Status: Active Protocol: Document 09/01/18 09:00 RCC (Rec: 09/01/18 16:32 RCC [email or web address]) Cardio Equipment Upper Body Ergometer (UBE) Duration (Minutes) 6 RPM 65 Height fwd/bkw Gym Equipment Cable Column (Body Solid) Rows Details semi wide administration professional Resistance 60# Reps/Time x 15 reps x 2 Lat Pull Down Resistance 60# Reps/Time x15 reps x 2 Therapeutic Exercises Supine Exercises Pec stretch Supine Exercise Name Pec stretch on 1/2 roll Side bilateral Equipment Used 1/2 roll Reps/Minutes Hold f/b 15x thoracic ext, 2 sets Comments AP of L scapula/thoracic wall (stab at scapula) during active thoracic ext Serratus punch Side left Resistance 2# Reps/Minutes 2x10 Sidelying Exercises shoulder ER Side left Reps/Minutes x10 shoulder abduction Side left Reps/Minutes x10 Standing Exercises wall push up and push up-plus Side bilateral Reps/Minutes 2x10 wall push up, 1x10 wall push up-plus Manual Therapy Treatment Soft Tissue Mobilization 1 Body Location anterior shoulder RTC insertion Mobilization Type Cross-Friction Myofascial Release Intensity/Depth Moderate Body Position Hooklying Joint Mobilizations Left Scapulothoracic Direction upward rotation Grade III Body Position Sidelying Reps/Duration 5 min PT-OP-R Modalities Start: 08/09/18 15:16 Freq: Status: Active Protocol: Document 09/01/18 09:00 [facility] (Rec: 09/01/18 16:32 [facility] [id number]) Hot Pack/Cold Pack Treatment Cold Pack Location left shoulder Patient Position Hooklying Treatment Duration (minutes) 10 Patient Tolerance Good PT-OP-T Assessment and Plan Start: 08/09/18 15:16 Freq: Status: Active Protocol: Document 09/01/18 09:00 RCC (Rec: 09/01/18 16:32 [facility] [id number]) Physical Therapy Assessment Assessment Summary Assessment Pt tolerated increase in resistance of cable activities today without difficulty. He continues to demonstrate impaired scapulohumeral rhythm , with impaired upward rotation and control of downward rotation of the scapula with L shoulder elevation. Physical Therapy Plan Frequency and Duration Frequency of Treatment 2x/Week Duration of Treatment 8 wks Plan of Care Start Date 08/09/18 Plan of Care End Date 10/09/18 Next Visit Focus/Plan Next Note Type Treatment Note Next Visit Plan advance L shoulder ROM and strengthening as tolerated, restore scapulohumeral rhythm
--- NOTE | 2018-09-04 16:47 | PT.OTN ---
Current Diagnoses Pain in left shoulder (09/04/18) Physical Therapy Treatment Note PT-OP-A Visit Information Start: 08/09/18 15:16 Freq: Status: Active Protocol: Document 09/04/18 15:53 EA (Rec: 09/04/18 15:58 EA [id number]) Out-Patient Physical Therapy Visit Information Visit Information Visit Type Treatment Note Visit Start Time 15:15 Visit Stop Time 16:03 Total Visit Minutes 48 Visit Number 7 PT-OP-B Current Condition Start: 08/09/18 15:16 Freq: Status: Active Protocol: Document 08/09/18 15:16 SAK (Rec: 08/09/18 16:02 SAK [id number]) Current Condition History of Current Condition Onset Date 2 months ago Current Complaints left shoulder pain History of Current Condition Was at gym, was doing standing chest press on cable machine with increased weight because he was feeling good. Has taken Alleve and used [place]. Iced for awhile but has quit. Some improvement since initial injury, but still hard to reach overhead or out to side. Still going to gym but has modified his exercises. Prior pain left shoulder 7-8 yrs ago, got better on its own . Denies numbness or tingling . Prior Treatments and Tests x-ray: No fractures or dislocations. 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 Treatment Goals Patient/Caregiver Goals Eliminate pain and return to full functional use of his left UE. Prior Functional Status Baseline Function- ADL's Independent Baseline Function- Mobility Independent Baseline Function- Gait independent no device Baseline Function- Work/School retired, able to use household tasks without difficulty Baseline Function- Recreation/Hobbies weight-lifting, gardening no restrictions Current Functional Impairments (Reported) Functional Limitations- ADL's painful Functional Limitations- Mobility/Gait independent no device Functional Limitations- Work/School household tasks requiring reaching overhead or out to side are painful, unable to do some Functional Limitations- Recreation/ Has modified weight-lifting ex Hobbies , some pain with gardening PT-OP-C Subjective Start: 08/09/18 15:16 Freq: Status: Active Protocol: Document 09/04/18 15:53 EA (Rec: 09/04/18 15:58 EA [id number]) OP-PT Subjective Patient Comments Patient Comments Pt reports consistent with gym exercises and avoiding chest exercises; states pain much very less at this time. Patient Reported Progress Improving PT-OP-E Functional Tests Start: 08/09/18 15:16 Freq: Status: Active Protocol: Document 08/09/18 15:16 [facility] (Rec: 08/10/18 16:13 [facility] [id number]) Functional Tests Apley's Scratch Test Action 1: The subject is instructed to touch the opposite shoulder with his/her hand. This motion checks Glenohumeral adduction, internal rotation , horizontal adduction and scapular protraction Action 2: The subject is instructed to place his/her arm overhead and reach behind the neck to touch his/her upper back. This motion checks Glenohumeral abduction, external rotation and scapular upward rotation and elevation. Action 3: The subject puts his/her hand on the lower back and reaches upward as far as possible. This motion checks glenohumeral adduction, internal rotation and scapular retraction with downward rotation Action 1- Left front of shoulder Action 1- Right back of shoulder Action 2- Left side of neck Action 2- Right T3 Action 3- Left L2 Action 3- Right T10 PT-OP-F Manual Assessment Start: 08/09/18 15:16 Freq: Status: Active Protocol: Document 08/09/18 15:16 [facility] (Rec: 08/10/18 16:13 [facility] [id number]) Manual Assessments Joint Mobility Assessment Joint Mobility Assessment Decreased inferior glide and posterior glide left shoulder PT-OP-H Neuro Start: 08/09/18 15:16 Freq: Status: Active Protocol: Document 08/09/18 15:16 [facility] (Rec: 08/10/18 16:13 [facility] [id number]) Sensation Evaluation Gross Sensation Gross Sensation WNL PT-OP-J Posture/Palpation/Skin Start: 08/09/18 15:16 Freq: Status: Active Protocol: Document 08/09/18 15:16 [facility] (Rec: 08/10/18 16:13 [facility] [id number]) Posture Evaluation Position Sitting Head/C-Spine Posture Forward Head T-Spine Posture Increased Kyphosis L-Spine Posture Flattened Shoulder Posture (L) Rounded (R) Rounded (L) Forward (R) Forward Scapula Posture (R) Protracted (L) Retracted Arm Posture (L) Internally Rotated (R) Internally Rotated Palpation Assessment Location left shoulder Palpation Location left RC insertion Palpation Findings Tenderness PT-OP-K Range of Motion Start: 08/09/18 15:16 Freq: Status: Active Protocol: Document 08/09/18 15:16 SAK (Rec: 08/10/18 16:13 SAK [id number]) Cervical Spine Range of Motion Cervical Spine Active Comments WNL Shoulder Goniometric Range of Motion Shoulder Measured in Degrees Left Active Shoulder ROM WFL No Flexion 120 Extension 20 Abduction 115 External Rotation at 45 degrees 65 Abduction Internal Rotation 50 right Shoulder ROM WFL Yes External Rotation at 45 degrees 90 Abduction Internal Rotation 65 PT-OP-L Special Tests Start: 08/09/18 15:16 Freq: Status: Active Protocol: Document 08/09/18 15:16 SAK (Rec: 08/10/18 16:13 SAK [id number]) Special Tests Shoulder Special Tests IR/Horizontal ADD Impingement Test Results positive left [place] Impingement Test Results positive left Elevation Impingement Test Results positive left PT-OP-M Strength Start: 08/09/18 15:16 Freq: Status: Active Protocol: Document 08/09/18 15:16 SAK (Rec: 08/10/18 16:13 SAK [id number]) Shoulder Strength Shoulder Manual Muscle Testing Left Flexion 3- Fair- Extension 4- Good- Abduction (C5) 3- Fair- External Rotation 4- Good- Internal Rotation 4+ Good+ Right Flexion 5 Normal Extension 5 Normal Abduction (C5) 5 Normal External Rotation 5 Normal Internal Rotation 5 Normal Elbow/Forearm Strength Elbow and Forearm Manual Muscle Testing dusty Flexion (C6) 5 Normal Extension (C7) 5 Normal PT-OP-Q Treatments Start: 08/09/18 15:16 Freq: Status: Active Protocol: Document 09/04/18 15:53 EA (Rec: 09/04/18 15:58 EA [id number]) Gym Equipment Cable Column (Body Solid) Rows Details semi wide pantographer Resistance 60# Reps/Time x 15 reps x 2 Lat Pull Down Resistance 60# Reps/Time x15 reps x 2 Therapeutic Exercises Prone Exercises 1 Prone Exercise Name T-ball: thoracic ext, shoulder T- and Y (scap adduction) Side bilateral Resistance 1# Reps/Minutes x 15 reps Standing Exercises 5 Standing Exercise Name T-bars shouldel wall shoulder press Resistance 2-6# Reps/Minutes x 12 reps x 2 4 Standing Exercise Name Wall shoulder press: T-bar Resistance 2# Reps/Minutes 15x 3 Standing Exercise Name T-bar Thoracic extension Reps/Minutes x 12 reps x 2 sets 2 Standing Exercise Name Shoulder ER/IR Resistance Lv 2 Reps/Minutes x 12 reps x 2 sets Comments Cues for form 1 Standing Exercise Name wall posture: T-bar shoulder flexion Side bilateral Resistance 2# Reps/Minutes x 15 reps x 2 sets Comments pain free range PT-OP-R Modalities Start: 08/09/18 15:16 Freq: Status: Active Protocol: Document 09/04/18 15:53 EA (Rec: 09/04/18 15:58 EA [id number]) Hot Pack/Cold Pack Treatment Cold Pack Location left shoulder Patient Position Hooklying Treatment Duration (minutes) 10 Patient Tolerance Good PT-OP-T Assessment and Plan Start: 08/09/18 15:16 Freq: Status: Active Protocol: Document 09/04/18 15:53 EA (Rec: 09/04/18 15:58 EA [id number]) Physical Therapy Assessment Assessment Summary Assessment Improved shoulder press and abduction. Patient is progressing well. Recommended to refrain from max intensity exercises for shoulder at the gym. Physical Therapy Plan Next Visit Focus/Plan Next Note Type Treatment Note Next Visit Plan advance L shoulder ROM and strengthening as tolerated, restore scapulohumeral rhythm
--- NOTE | 2018-09-07 12:11 | PT.OTN ---
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 Has taken Alleve and used [place]. Iced for awhile but has quit. Some improvement since initial injury, but still hard to reach overhead or out to side. Still going to gym but has modified his exercises. Prior pain left shoulder 7-8 yrs ago, got better on its own . Denies numbness or tingling . Prior Treatments and Tests x-ray: No fractures or dislocations. 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 Treatment Goals Patient/Caregiver Goals Eliminate pain and return to full functional use of his left UE. Prior Functional Status Baseline Function- ADL's Independent Baseline Function- Mobility Independent Baseline Function- Gait independent no device Baseline Function- Work/School retired, able to use household tasks without difficulty Baseline Function- Recreation/Hobbies weight-lifting, gardening no restrictions Current Functional Impairments (Reported) Functional Limitations- ADL's painful Functional Limitations- Mobility/Gait independent no device Functional Limitations- Work/School household tasks requiring reaching overhead or out to side are painful, unable to do some Functional Limitations- Recreation/ Has modified weight-lifting ex Hobbies , some pain with gardening PT-OP-C Subjective Start: 08/09/18 15:16 Freq: Status: Active Protocol: Document 09/07/18 09:07 EA (Rec: 09/07/18 09:08 EA [id number]) OP-PT Subjective Patient Comments Patient Comments Pt reports slept on left shoulder and little pain this morning. PT-OP-E Functional Tests Start: 08/09/18 15:16 Freq: Status: Active Protocol: Document 08/09/18 15:16 SAK (Rec: 08/10/18 16:13 SAK [id number]) Functional Tests Apley's Scratch Test Action 1: The subject is instructed to touch the opposite shoulder with his/her hand. This motion checks Glenohumeral adduction, internal rotation , horizontal adduction and scapular protraction Action 2: The subject is instructed to place his/her arm overhead and reach behind the neck to touch his/her upper back. This motion checks Glenohumeral abduction, external rotation and scapular upward rotation and elevation. Action 3: The subject puts his/her hand on the lower back and reaches upward as far as possible. This motion checks glenohumeral adduction, internal rotation and scapular retraction with downward rotation Action 1- Left front of shoulder Action 1- Right back of shoulder Action 2- Left side of neck Action 2- Right T3 Action 3- Left L2 Action 3- Right T10 PT-OP-F Manual Assessment Start: 08/09/18 15:16 Freq: Status: Active Protocol: Document 08/09/18 15:16 SAK (Rec: 08/10/18 16:13 [facility] [id number]) Manual Assessments Joint Mobility Assessment Joint Mobility Assessment Decreased inferior glide and posterior glide left shoulder PT-OP-H Neuro Start: 08/09/18 15:16 Freq: Status: Active Protocol: Document 08/09/18 15:16 SAK (Rec: 08/10/18 16:13 [facility] [id number]) Sensation Evaluation Gross Sensation Gross Sensation WNL PT-OP-J Posture/Palpation/Skin Start: 08/09/18 15:16 Freq: Status: Active Protocol: Document 08/09/18 15:16 SAK (Rec: 08/10/18 16:13 [facility] [id number]) Posture Evaluation Position Sitting Head/C-Spine Posture Forward Head T-Spine Posture Increased Kyphosis L-Spine Posture Flattened Shoulder Posture (L) Rounded (R) Rounded (L) Forward (R) Forward Scapula Posture (R) Protracted (L) Retracted Arm Posture (L) Internally Rotated (R) Internally Rotated Palpation Assessment Location left shoulder Palpation Location left RC insertion Palpation Findings Tenderness PT-OP-K Range of Motion Start: 08/09/18 15:16 Freq: Status: Active Protocol: Document 08/09/18 15:16 SAK (Rec: 08/10/18 16:13 SAK [id number]) Cervical Spine Range of Motion Cervical Spine Active Comments WNL Shoulder Goniometric Range of Motion Shoulder Measured in Degrees Left Active Shoulder ROM WFL No Flexion 120 Extension 20 Abduction 115 External Rotation at 45 degrees 65 Abduction Internal Rotation 50 right Shoulder ROM WFL Yes External Rotation at 45 degrees 90 Abduction Internal Rotation 65 PT-OP-L Special Tests Start: 08/09/18 15:16 Freq: Status: Active Protocol: Document 08/09/18 15:16 SAK (Rec: 08/10/18 16:13 SAK [id number]) Special Tests Shoulder Special Tests IR/Horizontal ADD Impingement Test Results positive left [place] Impingement Test Results positive left Elevation Impingement Test Results positive left PT-OP-M Strength Start: 08/09/18 15:16 Freq: Status: Active Protocol: Document 08/09/18 15:16 SAK (Rec: 08/10/18 16:13 SAK [id number]) Shoulder Strength Shoulder Manual Muscle Testing Left Flexion 3- Fair- Extension 4- Good- Abduction (C5) 3- Fair- External Rotation 4- Good- Internal Rotation 4+ Good+ Right Flexion 5 Normal Extension 5 Normal Abduction (C5) 5 Normal External Rotation 5 Normal Internal Rotation 5 Normal Elbow/Forearm Strength Elbow and Forearm Manual Muscle Testing dsuty Flexion (C6) 5 Normal Extension (C7) 5 Normal PT-OP-Q Treatments Start: 08/09/18 15:16 Freq: Status: Active Protocol: Document 09/07/18 09:40 EA (Rec: 09/07/18 09:45 EA [id number]) Cardio Equipment Upper Body Ergometer (UBE) Duration (Minutes) 6 RPM 70 Height fwd/bkw Gym Equipment Cable Column (Body Solid) Rows Details semi wide mica parts sprayer Resistance 60# Reps/Time x 15 reps x 2 Lat Pull Down Resistance 60# Reps/Time x15 reps x 2 Therapeutic Exercises Prone Exercises 1 Prone Exercise Name T-ball: thoracic ext, shoulder T- and Y (scap adduction) Side bilateral Resistance 2-3# Reps/Minutes x 15 reps x 2 Standing Exercises 6 Standing Exercise Name standing shoulder side raises Reps/Minutes x 12 reps x 2 Comments 0-90 abduction 5 Standing Exercise Name T-bars shouldel wall shoulder press Resistance 2-6# Reps/Minutes x 12 reps x 2 3 Standing Exercise Name T-bar Thoracic extension Reps/Minutes x 12 reps x 2 sets 2 Standing Exercise Name Shoulder ER/IR Resistance Lv 2 Reps/Minutes x 12 reps x 2 sets Comments Cues for form 1 Standing Exercise Name wall posture: T-bar shoulder flexion Side bilateral Resistance 2# Reps/Minutes x 15 reps x 2 sets Comments pain free range PT-OP-R Modalities Start: 08/09/18 15:16 Freq: Status: Active Protocol: Document 09/07/18 09:07 EA (Rec: 09/07/18 09:08 EA [id number]) Hot Pack/Cold Pack Treatment Cold Pack Location left shoulder Patient Position Hooklying Treatment Duration (minutes) 10 Patient Tolerance Good PT-OP-T Assessment and Plan Start: 08/09/18 15:16 Freq: Status: Active Protocol: Document 09/07/18 09:40 EA (Rec: 09/07/18 09:45 EA [id number]) Physical Therapy Assessment Assessment Summary Assessment Pt continue to show excellent progress. Re-evaluate next session for possible 1x/wk session. Physical Therapy Plan Next Visit Focus/Plan Next Note Type Treatment Note Next Visit Plan advance L shoulder ROM and strengthening as tolerated, restore scapulohumeral rhythm
--- NOTE | 2018-11-30 16:23 | PT.OPDS ---
Current Diagnoses Pain in left shoulder (09/07/18) Visit Care Team Role Provider Type Alexandro Georges MD Primary Care Provider Physician Specialty: Family Practice Address: [address] [place] [address], [id number] Email: [email or web address] Jesi Tarango MD Attending Provider Physician Specialty: Internal Medicine Address: [address] [place] [address], [id number] Email: Visit Number Visit Number 8 Discharge Summary PT-OP-B Current Condition Start: 08/09/18 15:16 Freq: Status: Active Protocol: Document 08/09/18 15:16 SAK (Rec: 08/09/18 16:02 SAK [id number]) Current Condition History of Current Condition Onset Date 2 months ago Current Complaints left shoulder pain History of Current Condition Was at gym, was doing standing chest press on cable machine with increased weight because he was feeling good. Has taken Alleve and used [place]. Iced for awhile but has quit. Some improvement since initial injury, but still hard to reach overhead or out to side. Still going to gym but has modified his exercises. Prior pain left shoulder 7-8 yrs ago, got better on its own . Denies numbness or tingling . Prior Treatments and Tests x-ray: No fractures or dislocations. 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 Treatment Goals Patient/Caregiver Goals Eliminate pain and return to full functional use of his left UE. Prior Functional Status Baseline Function- ADL's Independent Baseline Function- Mobility Independent Baseline Function- Gait independent no device Baseline Function- Work/School retired, able to use household tasks without difficulty Baseline Function- Recreation/Hobbies weight-lifting, gardening no restrictions Current Functional Impairments (Reported) Functional Limitations- ADL's painful Functional Limitations- Mobility/Gait independent no device Functional Limitations- Work/School household tasks requiring reaching overhead or out to side are painful, unable to do some Functional Limitations- Recreation/ Has modified weight-lifting ex Hobbies , some pain with gardening PT-OP-C Subjective Start: 08/09/18 15:16 Freq: Status: Active Protocol: Document 09/07/18 09:07 EA (Rec: 09/07/18 09:08 EA [id number]) OP-PT Subjective Patient Comments Patient Comments Pt reports slept on left shoulder and little pain this morning. PT-OP-E Functional Tests Start: 08/09/18 15:16 Freq: Status: Active Protocol: Document 08/09/18 15:16 SAK (Rec: 08/10/18 16:13 SAK [id number]) Functional Tests Apley's Scratch Test Action 1- Left front of shoulder Action 1- Right back of shoulder Action 2- Left side of neck Action 2- Right T3 Action 3- Left L2 Action 3- Right T10 PT-OP-F Manual Assessment Start: 08/09/18 15:16 Freq: Status: Active Protocol: Document 08/09/18 15:16 SAK (Rec: 08/10/18 16:13 SAK [id number]) Manual Assessments Joint Mobility Assessment Joint Mobility Assessment Decreased inferior glide and posterior glide left shoulder PT-OP-H Neuro Start: 08/09/18 15:16 Freq: Status: Active Protocol: Document 08/09/18 15:16 SAK (Rec: 08/10/18 16:13 SAK [id number]) Sensation Evaluation Gross Sensation Gross Sensation WNL PT-OP-J Posture/Palpation/Skin Start: 08/09/18 15:16 Freq: Status: Active Protocol: Document 08/09/18 15:16 SAK (Rec: 08/10/18 16:13 SAK [id number]) Posture Evaluation Position Sitting Head/C-Spine Posture Forward Head T-Spine Posture Increased Kyphosis L-Spine Posture Flattened Shoulder Posture (L) Rounded,(R) Rounded,(L) Forward,(R) Forward Scapula Posture (R) Protracted,(L) Retracted Arm Posture (L) Internally Rotated,(R) Internally Rotated Palpation Assessment Location left shoulder Palpation Location left RC insertion Palpation Findings Tenderness PT-OP-K Range of Motion Start: 08/09/18 15:16 Freq: Status: Active Protocol: Document 08/09/18 15:16 SAK (Rec: 08/10/18 16:13 SAK [id number]) Cervical Spine Range of Motion Cervical Spine Active Comments WNL Shoulder Goniometric Range of Motion Shoulder Left Active Shoulder ROM WFL No Flexion 120 Extension 20 Abduction 115 External Rotation at 45 degrees 65 Abduction Internal Rotation 50 right Shoulder ROM WFL Yes External Rotation at 45 degrees 90 Abduction Internal Rotation 65 PT-OP-L Special Tests Start: 08/09/18 15:16 Freq: Status: Active Protocol: Document 08/09/18 15:16 SAK (Rec: 08/10/18 16:13 [facility] [id number]) Special Tests Shoulder Special Tests IR/Horizontal ADD Impingement Test Results positive left [place] Impingement Test Results positive left Elevation Impingement Test Results positive left PT-OP-M Strength Start: 08/09/18 15:16 Freq: Status: Active Protocol: Document 08/09/18 15:16 [facility] (Rec: 08/10/18 16:13 [facility] [id number]) Shoulder Strength Shoulder Manual Muscle Testing Left Flexion 3- Fair- Extension 4- Good- Abduction (C5) 3- Fair- External Rotation 4- Good- Internal Rotation 4+ Good+ Right Flexion 5 Normal Extension 5 Normal Abduction (C5) 5 Normal External Rotation 5 Normal Internal Rotation 5 Normal Elbow/Forearm Strength Elbow and Forearm Manual Muscle Testing dusty Flexion (C6) 5 Normal Extension (C7) 5 Normal PT-OP-T Assessment and Plan Start: 08/09/18 15:16 Freq: Status: Active Protocol: Document 11/30/18 16:21 [facility] (Rec: 11/30/18 16:22 [facility] [id number]) Physical Therapy Plan Discharge Physical Therapy Discharge Reasons No Longer Attending PT Discharge Comments Patient not seen in physical therapy since 09/07/18. Will be discharged from PT at this time; if would like to do further PT will need new referral.
== END 2018-12-01 08:00 | disposition home or self-care (01) ==
LOC: PHYS 09:00
PROVIDERS: PCP Family Medicine; Visit Provider Hospitalist
DX: M25.512 Pain in left shoulder (principal)
CPT/HCPCS: 97010; 97035; 97110; 97140; 97162; 97530; 97535

== ENCOUNTER → 2018-11-27 07:28 | Outpatient (CLI) | payer MEDICARE, OTHER, SELFPAY ==
[2018-11-27 08:21] LABS: Add Manual Diff / Slide Review NO; Basophils Absolute Auto 0 /uL (0-100); Basophils Percent Auto 0.7 % (0-2); Eosinophils Absolute Auto 900 /uL (0-450); Eosinophils Percent Auto 14.1 % (2-4); Hematocrit 44.5 % (41-53); Hemoglobin 14.9 g/dL (13.5-17.5); Lymphocytes Absolute Auto 1400 /uL (1100-4500); Lymphocytes Percent Auto 21.5 % (25-40); Mean Corpuscular HGB Conc 33.5 % (30-36); Mean Corpuscular Hemoglobin 30.2 PG (26-34); Monocytes Absolute Auto 1000 /uL (0-900); Monocytes Percent Auto 14.2 % (3-14); Neutrophils Absolute Auto 3300 /uL (1500-7000); Neutrophils Percent Auto 49.5 % (50-75); Platelet Count 154 X10^3/uL (150-400); Red Blood Cell Count 4.94 X10^6/uL (4.5-5.9); Red Cell Distribution Width 13.5 % (11.6-14.8); White Blood Cell Count 6.7 X10^3/uL (4.5-11.0)
[2018-11-27 09:26] LABS: Alanine Aminotransferase 29 IU/L (21-72); Albumin Globulin Ratio 1.5 (1.0-2.8); Alkaline Phosphatase 90 U/L (38-126); Aspartate Aminotransferase 26 IU/L (17-59); BUN Creatinine Ratio 21.8 (6-22); Bilirubin Total 0.6 mg/dL (0.2-1.3); Blood Urea Nitrogen 24 mg/dL (9-20); Calcium 9.7 mg/dL (8.4-10.2); Carbon Dioxide 30 mmol/L (22-32); Chloride 98 mmol/L (98-107); Cholesterol 120 mg/dL (140-199); Estimated Glomerular Filt Rate > 60.0 mL/min (>60); Globulin 2.7 g/dL (1.7-4.1); Glucose 93 mg/dL (80-110); HDL Cholesterol 55 mg/dL (40-60); HEMOLYSIS < 15 (0-50); LDL Cholesterol Calculated 51 mg/dL (<100); Sodium 137 mmol/L (137-145); Total Protein 6.7 g/dL (6.3-8.2); Triglycerides 70 mg/dL (35-150)
[2018-11-27 09:53] LABS: Prostate Specific Antigen Scrn 3.29 ng/mL (0.1-4.0)
== END ==
PROVIDERS: PCP Family Medicine; Visit Provider Family Medicine
DX: I49.9 Cardiac arrhythmia, unspecified (principal); E78.2 Mixed hyperlipidemia; I10 Essential (primary) hypertension; Z12.5 Encounter for screening for malignant neoplasm of prostate
CPT/HCPCS: 36415; 80053; 80061; 85025; G0103

== ENCOUNTER 2018-12-12 06:43 | Day surgery (SDC) | payer MEDICARE, OTHER, SELFPAY ==
[2018-12-12 07:10] VITALS: BP 151/84; PULSE 62; RESP 16; TEMP 36.7; O2SAT 98
[2018-12-12 07:31] VITALS: BMI 22.7
[2018-12-12] MEDS: PROPARACAINE 0.5% OPHTH SOL 2 DROPS EYE-OP (07:39)
[2018-12-12] MEDS: CATARACT EYE COMPOUND (10 DROPS/SYRINGE) 3 DROPS EYE-OP (07:42)
--- NOTE | 2018-12-12 08:06 | PM.PREOP ---
Pre-operative Note Interval Note History & Physical reviewed/Exam performed by Physician: No Changes to H&P: No
--- NOTE | 2018-12-12 08:06 | PM.OP.1 ---
Operative Date/Time/Diagnoses Pre-op diagnosis: Nuclear Cataract Left eye Post-op diagnosis: same Procedure & Clinicians Surgeon: Carl Uriostegui Anesthesia Type: MAC +/- and Sedation Operative Notes Procedure in detail: Patient brought to the operating suite. Tetracaine drops placed in the left eye. Patient was prepped and draped in sterile manner. Wire lid speculum was placed in the eye. Betadine drops were placed on the eye. This was irrigated. Lidocaine jelly was placed on the eye. A paracentesis port was created with a side-port blade. 0.1 mL 1% preservative free lidocaine was injected into the anterior chamber. The anterior chamber was deepened with viscoelastic. 2.6 mm keratome was used to create a temporal clear corneal incision. Cystotome and Utrata forceps were used to create continuous tear capsulorrhexis. Balanced salt solution was used to hydro dissect the nucleus. The phacoemulsification handpiece was inserted and the nucleus was removed using the stop and chop technique. The irrigation aspiration handpiece was inserted and the remaining cortex was removed. Anterior chamber was deepened with viscoelastic. An Munson ZCB00 intraocular lens with a power of 26.0 was injected into the capsular bag. Irrigation aspiration handpiece was inserted and the remaining viscoelastic was removed. Incision was hydrated with balanced salt solution and found to be leak free with pressure with Weck-Ramila sponges. 0.1 mL Vigamox injected anterior chamber. 0.3 mL Kenalog 10 mg was injected subconjunctivally. Lid speculum was removed. The patient left the operating room in excellent condition. Complications: none Post-operative Condition: stable Disposition: same day surgery
[2018-12-12] MEDS: PHENYLEPHRINE/LIDOCAINE VIAL (OR) 0.2 ML EYE-OP (08:21)
[2018-12-12] MEDS: TRIAMCINOLONE 50 MG/5 ML VIAL INJ (08:22)
[2018-12-12] MEDS: CHONDROIDTIN/SOD HYALURONATE 1.05 ML SYRINGE INTRAOCULA (08:22)
[2018-12-12] MEDS: LIDOCAINE JELLY 2% 5 ML 1 APPLIC TOP (08:22)
[2018-12-12] MEDS: MOXIFLOXACIN INJ 5 MG/ML VIAL EYE-OP (08:22)
[2018-12-12] MEDS: BALANCED SALT IRRIG SOLN NO.2 500 ML, EPINEPHrine 1 MG IRR (08:23)
[2018-12-12] MEDS: TETRACAINE 0.5% OPHTH DROPS 4 ML 2 DROPS EYE-OP (08:23)
[2018-12-12 08:42] VITALS: BP 125/76; PULSE 57; RESP 16; TEMP 36.3; O2SAT 98
== END 2018-12-12 08:52 | disposition home or self-care (01) ==
LOC: OR 06:44
PROVIDERS: PCP Family Medicine; Visit Provider Ophthalmology
PROC: (CPT 66984; principal; 2018-12-12 08:15)
DX: H25.12 Age-related nuclear cataract, left eye (principal); J45.909 Unspecified asthma, uncomplicated; I10 Essential (primary) hypertension
CPT/HCPCS: 66984; J0171; J2250; J3010; J3301

== ENCOUNTER 2018-12-26 08:23 | Day surgery (SDC) | payer MEDICARE, OTHER, SELFPAY ==
[2018-12-26] MEDS: PROPARACAINE 0.5% OPHTH SOL 2 DROPS EYE-OP (09:14)
[2018-12-26] MEDS: CATARACT EYE COMPOUND (10 DROPS/SYRINGE) 3 DROPS EYE-OP ×3 (09:15→09:28)
[2018-12-26 09:17] VITALS: BP 149/82; PULSE 61; RESP 16; TEMP 36.9; O2SAT 97; BMI 23.6
--- NOTE | 2018-12-26 09:42 | PM.PREOP ---
Pre-operative Note Interval Note History & Physical reviewed/Exam performed by Physician: No Changes to H&P: No
--- NOTE | 2018-12-26 09:42 | PM.OP.1 ---
Operative Date/Time/Diagnoses Pre-op diagnosis: Nuclear cataract right eye Procedure & Clinicians Procedure: Cataract Surgery Same procedure as scheduled: Yes Surgeon: Carl Uriostegui Anesthesia Type: MAC +/- and Sedation Operative Notes Procedure in detail: Patient brought to the operating suite. Tetracaine drops placed in the right eye. Patient was prepped and draped in sterile manner. Wire lid speculum was placed in the eye. Betadine drops were placed on the eye. This was irrigated. Lidocaine jelly was placed on the eye. A paracentesis port was created with a side-port blade. 0.1 mL 1% preservative free lidocaine was injected into the anterior chamber. The anterior chamber was deepened with viscoelastic. 2.6 mm keratome was used to create a temporal clear corneal incision. Cystotome and Utrata forceps were used to create continuous tear capsulorrhexis. Balanced salt solution was used to hydro dissect the nucleus. The phacoemulsification handpiece was inserted and the nucleus was removed using the stop and chop technique. The irrigation aspiration handpiece was inserted and the remaining cortex was removed. Anterior chamber was deepened with viscoelastic. An Munson ZCB00 intraocular lens with a power of 25.5 was injected into the capsular bag. Irrigation aspiration handpiece was inserted and the remaining viscoelastic was removed. Incision was hydrated with balanced salt solution and found to be leak free with pressure with Weck-Ramila sponges. 0.1 mL Vigamox injected anterior chamber. 0.3 mL Kenalog 10 mg was injected subconjunctivally. Lid speculum was removed. The patient left the operating room in excellent condition. Complications: none Post-operative Condition: stable Disposition: same day surgery
[2018-12-26] MEDS: MOXIFLOXACIN INJ 5 MG/ML VIAL EYE-OP (10:02)
[2018-12-26] MEDS: TRIAMCINOLONE 50 MG/5 ML VIAL INJ (10:02)
[2018-12-26] MEDS: CHONDROIDTIN/SOD HYALURONATE 1.05 ML SYRINGE INTRAOCULA (10:02)
[2018-12-26] MEDS: LIDOCAINE JELLY 2% 5 ML 1 APPLIC TOP (10:02)
[2018-12-26] MEDS: PHENYLEPHRINE/LIDOCAINE VIAL (OR) 0.2 ML EYE-OP (10:03)
[2018-12-26] MEDS: BALANCED SALT IRRIG SOLN NO.2 500 ML, EPINEPHrine 1 MG IRR (10:03)
[2018-12-26] MEDS: TETRACAINE 0.5% OPHTH DROPS 4 ML 2 DROPS EYE-OP (10:03)
[2018-12-26 10:11] VITALS: BP 120/74; PULSE 61; RESP 16; TEMP 36.6; O2SAT 92
== END 2018-12-26 10:22 | disposition home or self-care (01) ==
PROVIDERS: Family Provider Family Medicine; PCP Family Medicine; Visit Provider Ophthalmology
PROC: (CPT 66984; principal; 2018-12-26 10:15)
DX: H25.11 Age-related nuclear cataract, right eye (principal)
CPT/HCPCS: 66984; J0171; J2250; J3010; J3301

== ENCOUNTER 2019-04-09 08:01 | Day surgery (SDC) | payer MEDICARE, OTHER, SELFPAY ==
[2019-04-09 08:32] VITALS: BP 147/69; PULSE 61; RESP 16; TEMP 36.7; O2SAT 99; BMI 23.0
[2019-04-09] MEDS: SODIUM CHLORIDE 0.9% 1,000 ML 200 ML IV (08:37)
--- NOTE | 2019-04-09 09:13 | PM.HP.1 ---
History of Present Illness History of Present Illness Date Patient Seen: 04/09/19 Time Patient Seen: 09:13 Chief complaint: [id number] Narrative: Patient presents for colorectal screening. T they had a prior colonoscopy performed 5 years ago that demonstrated adenomatous polyps. No personal or family history of colon cancer. On further history denies any recent gastrointestinal symptoms. No nausea, vomiting, abdominal pain, loss of appetite, unexplained weight loss, change in bowel habits, diarrhea, constipation, melena, hematochezia, or bright red blood per rectum. Patient History Medical History Asthma (Acute) Enlarged prostate (Acute) Hypertension (Acute) Irregular heart beat (Acute) Urinary frequency (Acute) Wears dentures (Acute) Wears glasses (Acute) Wears hearing aid in both ears (Acute) Family & Social History Social History: household members none Tobacco & Substance use: Smoking Status Former smoker Meds Home Medications and Allergies Home Medications Medication Instructions Recorded Confirmed Type Qvar 0.08 mg IH BID #1 04/20/11 04/09/19 Rx losartan 25 mg tablet 25 mg PO BID #180 tab 08/22/18 04/09/19 Rx simvastatin 20 mg tablet 20 mg PO Q DAY #100 tab 08/23/18 04/09/19 Rx levothyroxine 50 mcg tablet 50 mcg PO DAILY #90 tab 11/03/18 04/09/19 Rx pramipexole 0.125 mg tablet 0.25 mg PO BID #360 tab 12/06/18 04/09/19 Rx Allergies Allergy/AdvReac Type Severity Reaction Status Date / Time amlodipine [AMLODIPINE] Allergy Severe Facial Verified 04/09/19 08:29 Swelling lisinopril [LISINOPRIL] Allergy Unknown ANGIEDEMA Verified 04/09/19 08:29 Review of Systems Review of Systems Narrative: A complete review of systems is negative except as noted in the HPI Exam Vital Signs (past 8 hours): - 04/09/19 08:32 Temperature 98.0 F Pulse Rate 61 Respiratory Rate 16 Blood Pressure 147/69 H Pulse Oximetry 99 Oxygen Delivery Method Room Air Narrative Exam Narrative: General-no acute distress, well nourished HEENT-moist mucous membranes, no scleral icterus Neck-supple, no lymphadenopathy Chest- non labored respirations, clear to auscultation bilaterally Cardiac-regular rate no peripheral edema Abdomen-soft, nontender, non distended Extremities-warm, well perfused Neurological-alert and oriented, no focal deficits Assessment & Plan Assessment and plan (1) Screening for colon cancer: Current visit: Yes Status: Acute Assessment & Plan narrative: The patient requires colorectal screening and colonoscopy is recommended. Technical details were discussed. Risks, benefits, alternatives explained. Risks including but not limited to myocardial infarction, aspiration, bleeding, pain, missed lesion, incomplete examination, need for further radiographic studies, colonic perforation, and need for major abdominal surgery were discussed. All questions were answered to their satisfaction, and they are in agreement with this plan.
[2019-04-09] MEDS: MIDAZOLAM 5 MG/5 ML VIAL IV ×2 (09:27→09:41)
[2019-04-09] MEDS: fentaNYL 250 MCG/5 ML INJ IV (09:41)
--- NOTE | 2019-04-09 09:50 | PM.OP.ENDO ---
Operative Date/Time/Diagnoses Date of procedure: 04/09/19 Time of procedure: 09:50 Pre-op diagnosis: Screening Colonoscopy Post-op diagnosis: same Procedure & Clinicians Study performed: Colonoscopy Same procedure as scheduled: Yes Indications: 78-year-old male last colonoscopy 5 years ago with adenomatous polyp presents for routine screening. Surgeon: Haroon Sawyer Procedure Notes SCOAP/Timeout: Performed Procedure in detail: Patient placed in left lateral decubitus position. Time out was performed. Procedural sedation was administered with Versed and Fentanyl. A rectal exam demonstrated no external hemorrhoids no internal masses. Colonoscopy scope was placed into the rectum and advanced through the colon to the cecum. The ileocecal valve was identified. The scope was then slowly withdrawn examining colon thoroughly in all directions. The colonoscopy was notable for the following 1. Sigmoid diverticulosis 2. Grade 1 internal hemorrhoids 3. Quality of prep excellent Scope withdrawal time: 7 Sedation minutes: 25 Findings: diverticulosis and internal hemorrhoids Specimen(s): none sent Complications: none Impression: Diverticulosis Post-procedure Recommendations: High fiber diet Disposition: same day surgery
[2019-04-09 09:54] VITALS: BP 120/62; PULSE 52; RESP 14; TEMP 36.4; O2SAT 99
[2019-04-09 09:58] VITALS: BP 106/61; PULSE 51; RESP 12; TEMP 36.5; O2SAT 97
[2019-04-09 10:03] VITALS: BP 105/61; PULSE 50; RESP 11; TEMP 36.5; O2SAT 97
[2019-04-09 10:09] VITALS: BP 129/70; PULSE 54; RESP 20; TEMP 36.6; O2SAT 99
[2019-04-09 10:15] VITALS: BP 122/62; PULSE 54; RESP 15; TEMP 36.6; O2SAT 97
== END 2019-04-09 10:29 | disposition home or self-care (01) ==
PROVIDERS: Family Provider Family Medicine; PCP Family Medicine; Visit Provider Surgery
PROC: 0DJD8ZZ Inspection of Lower Intestinal Tract, Via Natural or Artificial Opening Endoscopic (ICD-10-PCS; CPT 45378; principal; 2019-04-09 09:15)
DX: Z12.11 Encounter for screening for malignant neoplasm of colon (principal); Z86.010 Personal history of colon polyps; N40.1 Benign prostatic hyperplasia with lower urinary tract symptoms; R35.0 Frequency of micturition; I10 Essential (primary) hypertension; J45.909 Unspecified asthma, uncomplicated; I49.9 Cardiac arrhythmia, unspecified; K57.30 Diverticulosis of large intestine without perforation or abscess without bleeding; K64.0 First degree hemorrhoids
CPT/HCPCS: G0105; 99152; 99153; J2250; J3010

== ENCOUNTER → 2020-03-26 09:01 | Outpatient (CLI) | payer MEDICARE, OTHER, SELFPAY ==
[2020-03-26 10:53] LABS: Alanine Aminotransferase 26 IU/L (<50); Albumin 4.2 g/dL (3.5-5.0); Albumin Globulin Ratio 1.4 (1.0-2.8); Alkaline Phosphatase 87 U/L (38-126); Aspartate Aminotransferase 36 IU/L (17-59); BUN Creatinine Ratio 29.4 (6-22); Bilirubin Total 0.5 mg/dL (0.2-1.3); Blood Urea Nitrogen 35 mg/dL (9-20); Calcium 9.6 mg/dL (8.4-10.2); Carbon Dioxide 27 mmol/L (22-32); Chloride 101 mmol/L (98-107); Cholesterol 128 mg/dL (140-199); Estimated Glomerular Filt Rate 58.7 mL/min (>60); Glucose 98 mg/dL (80-110); HDL Cholesterol 60 mg/dL (40-60); HEMOLYSIS < 15 (0-50); LDL Cholesterol Calculated 52 mg/dL (<100); Potassium 4.6 mmol/L (3.4-5.1); Sodium 133 mmol/L (137-145); Total Protein 7.2 g/dL (6.3-8.2); Triglycerides 79 mg/dL (35-150)
[2020-03-26 11:23] LABS: Prostate Specific Antigen Scrn 5.65 ng/mL (0.1-4.0)
== END ==
PROVIDERS: Family Provider Family Medicine; PCP Family Medicine; Referring Provider Family Medicine; Visit Provider Family Medicine
DX: E78.2 Mixed hyperlipidemia (principal); Z12.5 Encounter for screening for malignant neoplasm of prostate
CPT/HCPCS: 36415; 80053; 80061; G0103

== ENCOUNTER → 2020-09-05 06:51 | Outpatient (CLI) | payer MEDICARE, OTHER, SELFPAY ==
[2020-09-05 08:19] LABS: Alanine Aminotransferase 28 IU/L (<50); Albumin 4.3 g/dL (3.5-5.0); Albumin Globulin Ratio 1.4 (1.0-2.8); Alkaline Phosphatase 84 U/L (38-126); Aspartate Aminotransferase 53 IU/L (17-59); BUN Creatinine Ratio 26.1 (6-22); Bilirubin Total 0.6 mg/dL (0.2-1.3); Blood Urea Nitrogen 31 mg/dL (9-20); Calcium 10.1 mg/dL (8.4-10.2); Carbon Dioxide 27 mmol/L (22-32); Chloride 99 mmol/L (98-107); Cholesterol 152 mg/dL (140-199); Estimated Glomerular Filt Rate 58.7 mL/min (>60); Globulin 3.1 g/dL (1.7-4.1); Glucose 102 mg/dL (80-110); HDL Cholesterol 73 mg/dL (40-60); HEMOLYSIS 32 (0-50); LDL Cholesterol Calculated 67 mg/dL (<100); Sodium 133 mmol/L (137-145); Total Protein 7.4 g/dL (6.3-8.2); Triglycerides 62 mg/dL (35-150)
[2020-09-05 08:25] LABS: Microalbumin Urine Random < 0.6 mg/dL (0-1.6)
[2020-09-05 08:27] LABS: Potassium 5.4 mmol/L (3.4-5.1)
[2020-09-05 08:48] LABS: TSH w/ Reflex to FT4 3.87 uIU/mL (0.47-4.68)
[2020-09-05 08:51] LABS: Prostate Specific Antigen 5.92 ng/mL (0.10-4.00)
== END ==
PROVIDERS: Specialist; Family Provider Family Medicine; PCP Family Medicine; Referring Provider Family Medicine; Visit Provider Family Medicine
DX: E78.2 Mixed hyperlipidemia (principal); N40.1 Benign prostatic hyperplasia with lower urinary tract symptoms; I10 Essential (primary) hypertension; E03.8 Other specified hypothyroidism; N13.8 Other obstructive and reflux uropathy; R97.20 Elevated prostate specific antigen [PSA]
CPT/HCPCS: 36415; 80053; 80061; 82043; 82570; 84153; 84443

== ENCOUNTER → 2020-09-29 07:06 | Outpatient (CLI) | payer MEDICARE, OTHER, SELFPAY ==
[2020-09-29 10:01] LABS: Alanine Aminotransferase 22 IU/L (<50); Albumin 3.9 g/dL (3.5-5.0); Albumin Globulin Ratio 1.4 (1.0-2.8); Alkaline Phosphatase 91 U/L (38-126); Aspartate Aminotransferase 35 IU/L (17-59); BUN Creatinine Ratio 16.5 (6-22); Bilirubin Total 0.4 mg/dL (0.2-1.3); Blood Urea Nitrogen 19 mg/dL (9-20); Calcium 9.1 mg/dL (8.4-10.2); Carbon Dioxide 27 mmol/L (22-32); Chloride 102 mmol/L (98-107); Estimated Glomerular Filt Rate > 60.0 mL/min (>60); Globulin 2.7 g/dL (1.7-4.1); Glucose 95 mg/dL (80-110); HEMOLYSIS < 15 (0-50); Potassium 4.7 mmol/L (3.4-5.1); Sodium 133 mmol/L (137-145); Total Protein 6.6 g/dL (6.3-8.2)
== END ==
PROVIDERS: Family Provider Family Medicine; PCP Family Medicine; Referring Provider Family Medicine; Visit Provider Family Medicine
DX: E87.5 Hyperkalemia (principal); I10 Essential (primary) hypertension
CPT/HCPCS: 36415; 80053

== ENCOUNTER → 2021-02-03 10:44 | Outpatient (CLI) | payer MEDICARE, OTHER, SELFPAY ==
--- NOTE | 2021-02-03 10:46 | DI.MRI.S_ITS ---
PROCEDURE: MR PELIS WO/W CON INDICATIONS: prostate cancer TECHNIQUE: Coronal HASTE, axial T1 FSE with fat saturation, 3-plane nonbreath-hold T2 FSE. After the administration of contrast, dynamic axial, delayed axial and coronal VIBE or 2-D FLASH with fat saturation through the pelvis. Optional diffusion weighted imaging and ADC may be performed. COMPARISON: None. FINDINGS: Image quality: Diffusion weighted and dynamic contrast enhanced images are diagnostic. Prostate: Gland size is 4.6 x 3.5 x 2.5 cm; ellipsoid gland volume is 21 mL. There is intrinsic T1 hyperintense signal within the peripheral zone bilaterally. This is likely due to hemorrhage. BPH nodules. Lesion size(s): Lesion 1: 1.1 x 0.6, (4/). Lesion 2: 0.9 x 0.8 cm, (4/16). Lesion 3: 0.7 cm, (/). Lesion location(s) (sector): Lesion 1: Left mid gland peripheral zone Lesion 2: Right apex transitional zone Lesion 3: Left mid gland transitional zone Lesion description: Lesion 1: Oval Lesion 2: Oval Lesion 3: Oval T2 weighted imaging (T2WI) morphology score: Lesion 1: 4 Lesion 2: 4 Lesion 3: 3 Diffusion weighted imaging (DWI) morphology score: Lesion 1: 4 Lesion 2: 4 Lesion 3: 3 Dynamic contrast enhancement (DCE): Lesion 1: Absent. Lesion 2: Present Lesion 3: Present Lesion PI-RADS score: Lesion 1: PI-RADS 4 Lesion 2: PI-RADS 4 Lesion 3: PI-RADS 3 No extraprostatic extension. Genitourinary system: Bladder wall thickness is normal. Distal ureters are non distended. Bowel and peritoneum: No pathologic free pelvic fluid. Inferior colon and small bowel loops are normal in caliber. Diverticulosis. Nodes and vessels: No pelvic or inguinal adenopathy by size criteria. Iliac vessels are normal in caliber. Soft tissues: No inguinal hernias. Bones: No definite osseous metastatic disease. Consider bone scan for further evaluation. IMPRESSION: 1. Left mid gland peripheral zone observation measuring 1.1 cm. PI-RADS 4. 2. Right apex transitional zone observation measuring 0.9 cm. PI-RADS 4. 3. Left mid gland transitional zone observation measuring 0.7 cm. PI-RADS 3. 4. No enlarged lymph nodes identified. 5. Diverticulosis. Dictated by: Suleman Gregorio M.D. on 02/03/2021 at 12:09 Approved by: Suleman Gregorio M.D. on 02/03/2021 at 12:37
== END ==
PROVIDERS: Family Provider Family Medicine; PCP Family Medicine; Referring Provider Specialist; Visit Provider Specialist
DX: C61 Malignant neoplasm of prostate (principal); K57.90 Diverticulosis of intestine, part unspecified, without perforation or abscess without bleeding
CPT/HCPCS: 72197; A9579

== ENCOUNTER → 2021-04-29 11:50 | Outpatient (CLI) | payer MEDICARE, OTHER, SELFPAY ==
[2021-04-29 13:18] LABS: Alanine Aminotransferase 39 IU/L (<50); Albumin 4.3 g/dL (3.5-5.0); Albumin Globulin Ratio 1.5 (1.0-2.8); Alkaline Phosphatase 83 U/L (38-126); Aspartate Aminotransferase 46 IU/L (17-59); BUN Creatinine Ratio 29.5 (6-22); Bilirubin Total 0.4 mg/dL (0.2-1.3); Blood Urea Nitrogen 38 mg/dL (9-20); Calcium 9.6 mg/dL (8.4-10.2); Carbon Dioxide 33 mmol/L (22-32); Chloride 95 mmol/L (98-107); Cholesterol 149 mg/dL (140-199); Estimated Glomerular Filt Rate 53.3 mL/min (>60); Globulin 2.9 g/dL (1.7-4.1); Glucose 87 mg/dL (80-110); HDL Cholesterol 71 mg/dL (40-60); HEMOLYSIS 22 (0-50); LDL Cholesterol Calculated 56 mg/dL (<100); Potassium 4.2 mmol/L (3.4-5.1); Sodium 132 mmol/L (137-145); Total Protein 7.2 g/dL (6.3-8.2); Triglycerides 110 mg/dL (35-150)
[2021-04-29 14:01] LABS: Prostate Specific Antigen 0.091 ng/mL (0.10-4.00)
[2021-04-29 14:04] LABS: TSH w/ Reflex to FT4 3.05 uIU/mL (0.47-4.68)
[2021-04-29 16:14] LABS: Creatinine Urine Random 28.3 mg/dL
[2021-04-29 16:34] LABS: Microalbumin Urine Random < 0.6 mg/dL (0-1.6)
== END ==
PROVIDERS: Family Provider Family Medicine; PCP Family Medicine; Referring Provider Specialist; Visit Provider Specialist
DX: E03.8 Other specified hypothyroidism (principal); I10 Essential (primary) hypertension; C61 Malignant neoplasm of prostate; I49.9 Cardiac arrhythmia, unspecified
CPT/HCPCS: 80053; 80061; 82043; 82570; 84153; 84443

== ENCOUNTER → 2021-06-24 09:04 | Outpatient (CLI) | payer MEDICARE, OTHER, SELFPAY ==
[2021-06-24 10:29] LABS: Alanine Aminotransferase 34 IU/L (<50); Albumin Globulin Ratio 1.5 (1.0-2.8); Alkaline Phosphatase 74 U/L (38-126); Aspartate Aminotransferase 39 IU/L (17-59); BUN Creatinine Ratio 32.3 (6-22); Bilirubin Total 0.5 mg/dL (0.2-1.3); Blood Urea Nitrogen 32 mg/dL (9-20); Calcium 9.3 mg/dL (8.4-10.2); Carbon Dioxide 28 mmol/L (22-32); Chloride 98 mmol/L (98-107); Estimated Glomerular Filt Rate > 60.0 mL/min (>60); Globulin 2.6 g/dL (1.7-4.1); Glucose 96 mg/dL (80-110); HEMOLYSIS < 15 (0-50); Potassium 5.1 mmol/L (3.4-5.1); Sodium 131 mmol/L (137-145); Total Protein 6.6 g/dL (6.3-8.2)
== END ==
PROVIDERS: Family Provider Family Medicine; PCP Family Medicine; Referring Provider Family Medicine; Visit Provider Family Medicine
DX: E87.1 Hypo-osmolality and hyponatremia (principal); I10 Essential (primary) hypertension; N17.9 Acute kidney failure, unspecified
CPT/HCPCS: 36415; 80053

== ENCOUNTER → 2021-09-28 16:50 | Outpatient (CLI) | payer MEDICARE, OTHER, SELFPAY ==
--- NOTE | 2021-09-28 16:51 | DI.RAD.S_ITS ---
PROCEDURE: XR FOOT LT MIN 3V INDICATIONS: left great toe pain. dropped 45lb dumbbell 5 weeks ago. TECHNIQUE: 3 views of the foot were acquired. COMPARISON: None. FINDINGS: Bones: There is a nondisplaced oblique fracture involving the distal 1st proximal phalanx. There is subtle callus formation and sclerosis along the fracture line, consists healing. No suspicious bony lesions. Osteopenia. Mild degenerative joint disease. Soft tissues: No tibiotalar joint effusion. Achilles tendon appears normal. IMPRESSION: Nondisplaced 1st proximal phalangeal fracture. Dictated by: Shiva Silver M.D. on 09/29/2021 at 17:31 Approved by: Shiva Silver M.D. on 09/30/2021 at 9:00
== END ==
PROVIDERS: Family Provider Family Medicine; PCP Family Medicine; Referring Provider Family Medicine; Visit Provider Family Medicine
DX: S92.415A Nondisplaced fracture of proximal phalanx of left great toe, initial encounter for closed fracture (principal); M79.672 Pain in left foot; X58.XXXA Exposure to other specified factors, initial encounter
CPT/HCPCS: 73630

== ENCOUNTER → 2021-10-07 09:21 | Outpatient (CLI) | payer MEDICARE, OTHER, SELFPAY ==
[2021-10-07 11:41] LABS: Prostate Specific Antigen < 0.064 ng/mL (0.10-4.00)
== END ==
PROVIDERS: Family Provider Family Medicine; PCP Family Medicine; Referring Provider Specialist; Visit Provider Specialist
DX: R97.20 Elevated prostate specific antigen [PSA] (principal)
CPT/HCPCS: 36415; 84153

== ENCOUNTER → 2021-11-02 09:28 | Outpatient (CLI) | payer MEDICARE, OTHER, SELFPAY ==
--- NOTE | 2021-11-02 09:30 | DI.RAD.S_ITS ---
PROCEDURE: XR FOOT LT MIN 3V INDICATIONS: great toe fracture TECHNIQUE: 3 views of the foot were acquired. COMPARISON: , , XR FOOT LT MIN 3V, 09/28/2021, 16:59. FINDINGS: Bones: A fracture is seen involving the distal aspect of the proximal phalanx of the great toe, with mild remodeling change of the fracture, with sclerosis along the fracture line. Only minimal bony bridging can be seen. No new fractures are seen. Generalized degenerative changes are seen. Soft tissues: No tibiotalar joint effusion. Achilles tendon appears normal. IMPRESSION: Mild interval remodeling changes of the fracture involving the proximal phalanx of the great toe. Dictated by: Donaldo Lea M.D. on 11/02/2021 at 10:34 Approved by: Donaldo Lea M.D. on 11/02/2021 at 10:35
== END ==
PROVIDERS: Family Provider Family Medicine; PCP Family Medicine; Referring Provider Family Medicine; Visit Provider Family Medicine
DX: S92.412A Displaced fracture of proximal phalanx of left great toe, initial encounter for closed fracture (principal); M79.672 Pain in left foot; X58.XXXA Exposure to other specified factors, initial encounter
CPT/HCPCS: 73630

== ENCOUNTER → 2022-01-05 08:09 | Outpatient (CLI) | payer MEDICARE, OTHER, SELFPAY ==
[2022-01-05 11:14] LABS: Prostate Specific Antigen < 0.064 ng/mL (0.10-4.00)
== END ==
PROVIDERS: Family Provider Family Medicine; PCP Family Medicine; Referring Provider Specialist; Visit Provider Specialist
DX: R97.20 Elevated prostate specific antigen [PSA] (principal)
CPT/HCPCS: 36415; 84153

== ENCOUNTER → 2022-07-02 09:13 | Outpatient (CLI) | payer MEDICARE, OTHER, SELFPAY ==
[2022-07-02 17:10] LABS: Prostate Specific Antigen < 0.064 ng/mL (0.10-4.00)
== END ==
PROVIDERS: Family Provider Family Medicine; PCP Family Medicine; Referring Provider Specialist; Visit Provider Specialist
DX: R97.20 Elevated prostate specific antigen [PSA] (principal)
CPT/HCPCS: 36415; 84153

== ENCOUNTER → 2022-12-08 08:52 | Outpatient (CLI) | payer MEDICARE, OTHER, SELFPAY ==
[2022-12-08 09:54] LABS: Add Manual Diff / Slide Review NO; Basophils Absolute Auto 0 /uL (0-100); Basophils Percent Auto 0.2 % (0-2); Eosinophils Absolute Auto 300 /uL (0-450); Eosinophils Percent Auto 2.6 % (2-4); Hematocrit 38.9 % (41-53); Hemoglobin 12.9 g/dL (13.5-17.5); Lymphocytes Absolute Auto 1200 /uL (1100-4500); Lymphocytes Percent Auto 10.4 % (25-40); Mean Corpuscular HGB Conc 33.1 % (30-36); Mean Corpuscular Volume 87.5 fL (80-100); Monocytes Absolute Auto 900 /uL (0-900); Monocytes Percent Auto 8.4 % (3-14); Neutrophils Absolute Auto 8700 /uL (1500-7000); Neutrophils Percent Auto 78.4 % (50-75); Platelet Count 215 X10^3/uL (150-400); Red Blood Cell Count 4.45 X10^6/uL (4.5-5.9); Red Cell Distribution Width 13.6 % (11.6-14.8); White Blood Cell Count 11.2 X10^3/uL (4.5-11.0)
[2022-12-11 02:35] LABS: Immunoglobulin E 246 IU/mL (6-495)
== END ==
PROVIDERS: Family Provider Family Medicine; PCP Family Medicine; Referring Provider Physician Assistant; Visit Provider Physician Assistant
DX: J45.40 Moderate persistent asthma, uncomplicated (principal)
CPT/HCPCS: 36415; 82785; 85025

== ENCOUNTER → 2023-01-03 08:37 | Outpatient (CLI) | payer MEDICARE, OTHER, SELFPAY ==
[2023-01-03 10:52] LABS: Prostate Specific Antigen < 0.064 ng/mL (0.10-4.00)
== END ==
PROVIDERS: Family Provider Family Medicine; PCP Family Medicine; Referring Provider Specialist; Visit Provider Specialist
DX: R97.20 Elevated prostate specific antigen [PSA] (principal)
CPT/HCPCS: 36415; 84153

== ENCOUNTER → 2023-01-28 06:59 | Outpatient (CLI) | payer MEDICARE, OTHER, SELFPAY ==
[2023-01-28 08:45] LABS: Add Manual Diff / Slide Review NO; Basophils Absolute Auto 0 /uL (0-100); Basophils Percent Auto 0.6 % (0-2); Eosinophils Absolute Auto 1000 /uL (0-450); Hematocrit 38.6 % (41-53); Hemoglobin 13.1 g/dL (13.5-17.5); Lymphocytes Absolute Auto 1400 /uL (1100-4500); Lymphocytes Percent Auto 25.5 % (25-40); Mean Corpuscular Hemoglobin 29.5 PG (26-34); Mean Corpuscular Volume 86.8 fL (80-100); Monocytes Absolute Auto 800 /uL (0-900); Monocytes Percent Auto 14.9 % (3-14); Neutrophils Absolute Auto 2100 /uL (1500-7000); Platelet Count 205 X10^3/uL (150-400); Red Blood Cell Count 4.45 X10^6/uL (4.5-5.9); Red Cell Distribution Width 13.8 % (11.6-14.8); White Blood Cell Count 5.3 X10^3/uL (4.5-11.0)
[2023-01-28 08:47] LABS: Creatinine Urine Random 72.5 mg/dL
[2023-01-28 08:51] LABS: Alanine Aminotransferase 21 IU/L (<50); Albumin Globulin Ratio 1.4 (1.0-2.8); Alkaline Phosphatase 103 U/L (38-126); Aspartate Aminotransferase 28 IU/L (17-59); BUN Creatinine Ratio 25.2 (6-22); Bilirubin Total 0.3 mg/dL (0.2-1.3); Blood Urea Nitrogen 27 mg/dL (9-20); Calcium 9.5 mg/dL (8.4-10.2); Carbon Dioxide 27 mmol/L (22-32); Chloride 98 mmol/L (98-107); Cholesterol 150 mg/dL (140-199); Estimated Glomerular Filt Rate > 60 mL/min (>60); Globulin 2.8 g/dL (1.7-4.1); Glucose 97 mg/dL (80-110); HDL Cholesterol 82 mg/dL (40-60); HEMOLYSIS < 15 (0-50); LDL Cholesterol Calculated 58 mg/dL (<100); Potassium 4.5 mmol/L (3.4-5.1); Sodium 132 mmol/L (137-145); Total Protein 6.8 g/dL (6.3-8.2); Triglycerides 48 mg/dL (35-150)
[2023-01-28 09:17] LABS: TSH w/ Reflex to FT4 4.21 uIU/mL (0.47-4.68)
[2023-01-28 09:27] LABS: Prostate Specific Antigen Scrn < 0.064 ng/mL (0.1-4.0)
[2023-01-28 09:27] LABS: Microalbumin Urine Random < 0.6 mg/dL (0-1.6)
== END ==
PROVIDERS: Family Provider Family Medicine; PCP Family Medicine; Referring Provider Family Medicine; Visit Provider Family Medicine
DX: C61 Malignant neoplasm of prostate (principal); E03.9 Hypothyroidism, unspecified; Z12.5 Encounter for screening for malignant neoplasm of prostate; E78.2 Mixed hyperlipidemia; I10 Essential (primary) hypertension; Z00.00 Encounter for general adult medical examination without abnormal findings
CPT/HCPCS: 36415; 80053; 80061; 82043; 82570; 84443; 85025; G0103

== ENCOUNTER → 2023-06-28 09:01 | Outpatient (CLI) | payer MEDICARE, OTHER, SELFPAY ==
[2023-06-28 11:01] LABS: Prostate Specific Antigen < 0.064 ng/mL (0.10-4.00)
== END ==
PROVIDERS: Family Provider Family Medicine; PCP Family Medicine; Referring Provider Specialist; Visit Provider Specialist
DX: Z85.46 Personal history of malignant neoplasm of prostate (principal)
CPT/HCPCS: 36415; 84153

== ENCOUNTER → 2024-01-19 09:47 | Outpatient (CLI) | payer MEDICARE, OTHER, SELFPAY ==
[2024-01-19 10:12] LABS: Add Manual Diff / Slide Review NO; Basophils Absolute Auto 100 /uL (0-100); Basophils Percent Auto 0.7 % (0-2); Eosinophils Absolute Auto 1400 /uL (0-450); Eosinophils Percent Auto 19.3 % (2-4); Hematocrit 37.9 % (41-53); Hemoglobin 12.7 g/dL (13.5-17.5); Lymphocytes Absolute Auto 1300 /uL (1100-4500); Lymphocytes Percent Auto 17.7 % (25-40); Mean Corpuscular HGB Conc 33.5 % (30-36); Mean Corpuscular Volume 89.6 fL (80-100); Monocytes Absolute Auto 900 /uL (0-900); Monocytes Percent Auto 12.1 % (3-14); Neutrophils Absolute Auto 3600 /uL (1500-7000); Neutrophils Percent Auto 50.2 % (50-75); Platelet Count 184 X10^3/uL (150-400); Red Blood Cell Count 4.24 X10^6/uL (4.5-5.9); Red Cell Distribution Width 13.5 % (11.6-14.8); White Blood Cell Count 7.1 X10^3/uL (4.5-11.0)
[2024-01-19 10:32] LABS: Alanine Aminotransferase 23 IU/L (<50); Albumin 3.9 g/dL (3.5-5.0); Albumin Globulin Ratio 1.3 (1.0-2.8); Alkaline Phosphatase 97 U/L (38-126); Aspartate Aminotransferase 32 IU/L (17-59); BUN Creatinine Ratio 29.7 (6-22); Bilirubin Total 0.5 mg/dL (0.2-1.3); Blood Urea Nitrogen 35 mg/dL (9-20); Calcium 9.3 mg/dL (8.4-10.2); Carbon Dioxide 25 mmol/L (22-32); Chloride 100 mmol/L (98-107); Cholesterol 147 mg/dL (140-199); Estimated Glomerular Filt Rate > 60 mL/min (>60); Globulin 3.1 g/dL (1.7-4.1); Glucose 95 mg/dL (80-110); HDL Cholesterol 68 mg/dL (40-60); HEMOLYSIS < 15 (0-50); LDL Cholesterol Calculated 59 mg/dL (<100); Potassium 4.5 mmol/L (3.4-5.1); Sodium 131 mmol/L (137-145); Triglycerides 102 mg/dL (35-150)
[2024-01-19 14:03] LABS: Creatinine Urine Random 22.25 mg/dL
[2024-01-19 14:13] LABS: Microalbumin Urine Random < 0.6 mg/dL (0-1.6)
[2024-01-19 16:58] LABS: Hep C Virus Ab w/Reflex Quant NEGATIVE s/c (NEGATIVE)
[2024-01-21 03:14] LABS: Apolipoprotein B 53 mg/dL (<90)
== END ==
LOC: LAB 09:52
PROVIDERS: Family Provider Family Medicine; PCP Family Medicine; Referring Provider Family Medicine; Visit Provider Family Medicine
DX: E03.9 Hypothyroidism, unspecified (principal); I10 Essential (primary) hypertension; N40.1 Benign prostatic hyperplasia with lower urinary tract symptoms; N13.8 Other obstructive and reflux uropathy; E78.2 Mixed hyperlipidemia
CPT/HCPCS: 36415; 80053; 80061; 82043; 82172; 82570; 84443; 85025; 86803

== ENCOUNTER → 2024-04-20 08:44 | Outpatient (CLI) | payer MEDICARE, OTHER, SELFPAY ==
--- NOTE | 2024-04-20 08:45 | DI.RAD.S_ITS ---
PROCEDURE: XR CERVICAL SPINE 2V OR 3V INDICATIONS: chronic neck pain TECHNIQUE: Three view(s) of the cervical spine were acquired. COMPARISON: None. FINDINGS: Bones: Normal mineralization. No acute vertebral body fractures. The craniocervical junction is intact with degeneration anteriorly. Vertebral body fusion from C3 through C5. Prominent facet arthropathy C2-3. Severe disc height loss C6-7.. Overall normal bone alignment. Soft tissues: No prevertebral soft tissue swelling. IMPRESSION: There are remote postsurgical changes in the upper cervical spine. Severe disc degeneration at C6-7. Overall normal bone alignment. Dictated by: Dayami Rose M.D. on 04/20/2024 at 13:55 Approved by: Dayami Rose M.D. on 04/20/2024 at 14:00
== END ==
PROVIDERS: Family Provider Family Medicine; PCP Family Medicine; Referring Provider Family Medicine; Visit Provider Family Medicine
DX: M50.323 Other cervical disc degeneration at C6-C7 level (principal); M47.812 Spondylosis without myelopathy or radiculopathy, cervical region; M62.838 Other muscle spasm; G89.29 Other chronic pain; Z98.1 Arthrodesis status
CPT/HCPCS: 72040

== ENCOUNTER → 2024-05-11 07:09 | Outpatient (CLI) | payer MEDICARE, OTHER, SELFPAY ==
--- NOTE | 2024-05-11 07:10 | DI.MRI.S_ITS ---
PROCEDURE: MR CERVICAL SPINE WO CON INDICATIONS: Radiculopathy, cervical region TECHNIQUE: Noncontrast sagittal T1 spin echo and T2 fast spin echo, sagittal STIR, foraminal oblique sagittal T2 fast spin echo, and axial gradient echo or T2 fast spin echo through the cervical spine. COMPARISON: None. FINDINGS: Image quality: Excellent. Alignment and Curvature: There is trace retrolisthesis of C6 on C7. Bone Marrow: Marrow demonstrates normal overall signal. Spinal Cord: Visualized spinal cord has normal size and signal. No cerebellar tonsillar herniation. Paraspinous Soft Tissues: No paravertebral masses. Prevertebral soft tissues are normal in thickness. Discs: Multilevel [id number] disc desiccation most severe at C6-7. C2-C3: Minimal disc bulge without spinal stenosis. Mild right foraminal narrowing with uncovertebral hypertrophy. C3-C4: Mild disc bulge with indentation of the anterior thecal sac. Minimal to mild bilateral foraminal narrowing with uncovertebral hypertrophy. C4-C5: Mild disc bulge with effacement of the anterior thecal sac. Mild to moderate bilateral foraminal narrowing a uncovertebral hypertrophy C5-C6: Mild disc bulge with minimal spinal stenosis. Mild bilateral foraminal narrowing. C6-C7: Mild disc bulge with the mild spinal stenosis. Moderate right, minimal to mild left foraminal narrowing. C7-T1: No disc bulge or spinal stenosis. Mild right foraminal narrowing with uncovertebral hypertrophy. IMPRESSION: Multilevel degenerative changes. Foraminal narrowing most prominent at C6-7 secondary to uncovertebral arthropathy. Dictated by: Victorina Slade M.D. on 05/11/2024 at 9:46 Approved by: Victorina Slade M.D. on 05/11/2024 at 10:56
== END ==
PROVIDERS: Family Provider Family Medicine; PCP Family Medicine; Referring Provider Physical Medicine & Rehabilitation; Visit Provider Physical Medicine & Rehabilitation
DX: M47.22 Other spondylosis with radiculopathy, cervical region (principal); M48.02 Spinal stenosis, cervical region
CPT/HCPCS: 72141

== ENCOUNTER 2024-06-05 09:06 | Outpatient (CLI) | payer MEDICARE, OTHER, SELFPAY ==
[2024-06-05] VITALS (9 sets, daily range): BP systolic 127–174; BP diastolic 62–89; PULSE 51–55; RESP 14–20; TEMP 36.5; O2SAT 97–100
[2024-06-05] MEDS: MIDAZOLAM 2 MG/2 ML VIAL IV (10:16)
[2024-06-05] MEDS: iopamidoL 15 ML VIAL 3 ML INJ (10:23)
[2024-06-05] MEDS: DEXAMETHASONE 10 MG/ML VIAL 20 MG INJ (10:23)
[2024-06-05] MEDS: BUPIVACAINE 0.25% (PF) VIAL 2 ML INJ (10:23)
--- NOTE | 2024-06-05 10:37 | P.PCN_ITS ---
Date/Time/Diagnoses Date of procedure: 06/05/24 Time of procedure: 10:37 Pre-procedure diagnosis: 1. CERVICAL STENOSIS, 2. CERVICAL HNP WITH UPPER EXTREMITY RADICULAR FEATURES Post-procedure diagnosis: same Procedure Notes Procedure: 1. FLUORSCOPICALLY GUIDED CONTRAST CONTROLLED INTERLAMINAR EPIDURAL STEROID INJECTION - C6/7 TL SARAY Indications: Ray is referred by Dr. Cates for treatment of Cervical HNP with Upper Extremity Paresthesias. Physician: Jerardo Sofia Total Fluoroscopy time (seconds): 28 Total sedation minutes: 15 Complications: none Procedure in detail & Post-procedure care: FINDINGS Cervical Stenosis due to disc deterioration and nerve root irritation and nerve root irritation DESCRIPTION OF PROCEDURE Fluoroscopically guided, contrast-controlled C6/7 translaminar epidural steroid injection with conscious sedation. Following review of allergy and review of potential side effects and complications, including, but not necessarily limited to, infection, allergic reaction, local tissue breakdown, temporary as well as permanent nerve injury, stroke, paralysis, and possible , the patient indicated that patient understood and agreed to proceed. An informed consent document was signed by the patient, witnessed by a nurse, and placed in the patient's chart. Additionally, other treatment options including modalities, medications, and physical therapy were reviewed with the patient. After review of previous anaesthesic history and IV conscious sedation the patient was deemed safe to proceed with today?s procedure with IV conscious sedation as ASA class II designation. Safety time-out was performed to confirm patient ID, procedure to be performed and site of procedure. IV sedation was accomplished with a combination of 2mg of Versed and 50mcg of Fentanyl administered by the RN after DO order, titrated to patient comfort during the course of the procedure while the patient remained responsive to all verbal commands. In the prone position, following sterile prep and drape of the cervical region, the C6/7 translaminar space was identified fluoroscopically. The skin was anesthetized via a 25-gauge 1.5-inch needle with 1% lidocaine solution. At this point, a 25-gauge, 2.5-inch short bevel spinal needle was atraumatically introduced and advanced under fluoroscopic guidance into epidural space at the C6/7 translaminar space. Depth was confirmed on lateral view. Radiological data, including multiple fluoroscopic views of the cervical spine, reveal a spinal needle at the C6/7 translaminar space. Lateral views then show placement of the needle in the epidural space. Subsequent views show contrast material flowing superiorly and inferiorly in the epidural space. DSA fluoroscopy with live contrast injection, once again, confirmed no vascular or intrathecal uptake. At this point, using loss of resistance technique with saline and air, the epidural space was entered. Following negative aspiration, injection of appro ximately 1.5 cc of Isovue-200 with live fluoroscopy in the AP view confirmed epidural flow in the epidural space without vascular or intrathecal uptake observed. Subsequently, a test dose of 1 cc of 1% lidocaine solution was injected and patient was observed for two minutes without signs or symptoms of complications, including abdominal pain, shortness of breath, bilateral upper or lower extremity weakness, nausea and vomiting, prior to steroid injection. At this point, 2cc or 20mg of dexamethasone was then injected without incident. The patient tolerated the procedure well without signs or symptoms of complications prior to being transferred to the recovery area for further monitoring, The patient was then transferred to the recovery area where they were observed for an appropriate period of time after the injection. The patient reported a VAS score of 6 prior to the procedure and a post-procedure VAS of 0. POST OP INSTRUCTIONS The patient was provided a Pain Log to continue to record their response to the target-specific procedure prior to follow-up visit with the referring provider. Additionally, specific post-injection care instructions and a contact number to our office were provided if concerns arise regarding possible complications associated with the procedure are suspected.
== END 2024-06-05 10:54 | disposition home or self-care (01) ==
LOC: RAD 09:06
PROVIDERS: Family Provider Family Medicine; PCP Family Medicine; Referring Provider Physical Medicine & Rehabilitation; Visit Provider Physical Medicine & Rehabilitation
DX: M48.02 Spinal stenosis, cervical region (principal); M50.123 Cervical disc disorder at C6-C7 level with radiculopathy
CPT/HCPCS: 62321; 99152; J1100; J2250; J3490

== ENCOUNTER → 2024-07-09 09:03 | Outpatient (CLI) | payer MEDICARE, OTHER, SELFPAY ==
[2024-07-09 11:29] LABS: Prostate Specific Antigen < 0.064 ng/mL (0.10-4.00)
== END ==
PROVIDERS: Family Provider Family Medicine; PCP Family Medicine; Referring Provider Urology; Visit Provider Urology
DX: Z85.46 Personal history of malignant neoplasm of prostate (principal); N40.1 Benign prostatic hyperplasia with lower urinary tract symptoms; N13.8 Other obstructive and reflux uropathy
CPT/HCPCS: 36415; 84153

== ENCOUNTER → 2024-08-13 16:09 | Outpatient (CLI) | payer MEDICARE, OTHER, SELFPAY ==
[2024-08-13 16:58] LABS: Hematocrit 38.2 % (41-53); Hemoglobin 12.9 g/dL (13.5-17.5); Mean Corpuscular HGB Conc 33.7 % (30-36); Mean Corpuscular Volume 89.2 fL (80-100); Platelet Count 186 X10^3/uL (150-400); Red Blood Cell Count 4.28 X10^6/uL (4.5-5.9); Red Cell Distribution Width 14.2 % (11.6-14.8); White Blood Cell Count 8.6 X10^3/uL (4.5-11.0)
[2024-08-13 17:10] LABS: Add Manual Diff / Slide Review YES
[2024-08-13 17:18] LABS: HEMOLYSIS < 15 (0-50); Iron 80 ug/dL (49-181)
[2024-08-13 17:24] LABS: Neutrophils Absolute Manual 4042 /uL (3000-5900); Rouleaux 1+; Total Cells Counted 100
[2024-08-13 17:27] LABS: Alanine Aminotransferase 28 IU/L (<50); Albumin 4.3 g/dL (3.5-5.0); Albumin Globulin Ratio 1.8 (1.0-2.8); Alkaline Phosphatase 115 U/L (38-126); Aspartate Aminotransferase 36 IU/L (17-59); Bilirubin Total 0.4 mg/dL (0.2-1.3); Blood Urea Nitrogen 45 mg/dL (9-20); Calcium 9.6 mg/dL (8.4-10.2); Carbon Dioxide 23 mmol/L (22-32); Chloride 101 mmol/L (98-107); Estimated Glomerular Filt Rate 56 mL/min (>60); Globulin 2.4 g/dL (1.7-4.1); Glucose 102 mg/dL (70-99); HEMOLYSIS < 15 (0-50); Sodium 133 mmol/L (137-145); Total Protein 6.7 g/dL (6.3-8.2)
[2024-08-13 17:31] LABS: Percent Iron Saturation 24 % (20-50); Total Iron Binding Capacity 340 ug/dL (261-462); Transferrin 290 mg/dL (206-381)
[2024-08-13 17:50] LABS: TSH w/ Reflex to FT4 3.57 uIU/mL (0.47-4.68)
[2024-08-13 17:57] LABS: Ferritin 60 ng/mL (18-464)
== END ==
PROVIDERS: Family Provider Family Medicine; PCP Family Medicine; Referring Provider Family Medicine; Visit Provider Family Medicine
DX: I10 Essential (primary) hypertension (principal); N52.9 Male erectile dysfunction, unspecified; R60.0 Localized edema
CPT/HCPCS: 36415; 80053; 82728; 83540; 83550; 84443; 85007; 85025

== ENCOUNTER 2024-09-11 08:38 | Outpatient (CLI) | payer MEDICARE, OTHER, SELFPAY ==
[2024-09-11] VITALS (8 sets, daily range): BP systolic 124–173; BP diastolic 59–81; PULSE 26–64; RESP 16–99; TEMP 36.2; O2SAT 2–100
[2024-09-11] MEDS: MIDAZOLAM 2 MG/2 ML VIAL IV (09:32)
[2024-09-11] MEDS: BUPIVACAINE 0.5% (PF) 10 ML VIAL 2 ML INJ (09:36)
[2024-09-11] MEDS: iopamidoL 15 ML VIAL 3 ML INJ (09:36)
--- NOTE | 2024-09-11 09:46 | P.PCN_ITS ---
Date/Time/Diagnoses Date of procedure: 09/11/24 Time of procedure: 09:46 Pre-procedure diagnosis: 1. FACET ARTHROPATHY 2. AXIAL NECK PAIN Post-procedure diagnosis: same Procedure Notes Procedure: 1. FLUOROSCOPICALLY GUIDED, CONTRAST-CONTROLLED Right C3, C4 and C5 MBB. Indications: Ray is referred by Dr. Cates for treatment of Axial Neck Pain Physician: Jerardo Sofia Total Fluoroscopy time (seconds): 7 Total sedation minutes: 10 Complications: none Procedure in detail & Post-procedure care: DESCRIPTION OF PROCEDURE Fluoroscopically guided, contrast-controlled right C3, C4 and C5 medial branch blocks LA. Following review of allergy and review of potential side effects and complications, including, but not necessarily limited to, infection, allergic reaction, local tissue breakdown, stroke, temporary or permanent nerve injury and paralysis, the patient indicated that the patient understood and agreed to proceed. An informed consent document was signed by the patient, witnessed by a nurse, and placed in the patient's chart. Additionally, other treatment options including medications, modalities, and physical therapy were reviewed with the patient. After review of previous anaesthesic history and IV conscious sedation the patient was deemed safe to proceed with today?s procedure with IV conscious sedation as ASA class II designation. Safety time-out was performed to confirm patient ID, procedure to be performed and site of procedure. IV sedation was accomplished with a combination of 2mg of Versed was administered by the RN after DO order, titrated to patient comfort during the course of the procedure while the patient remained responsive to all verbal commands In the prone position, following sterile prep and drape of the cervical spine region, the posterior aspect of theright C3, C4 and C5 medial branches were identified fluoroscopically. The skin was anesthetized via a 25-gauge 1.5-inch needle with 1% lidocaine solution into the corresponding medial branchs. At this point, a 25-gauge 2.5-inch spinal needle was atraumatically introduced and advanced under fluoroscopic guidance into the corresponding locations. Following negative aspiration, injections of approximately 0.1cc of Isovue 200 confirmed placement without vascular uptake. At this point, a total of 0.5cc of 0.25% bupivicaine solution was injected without complication into each of the corresponding medial branches. The procedure tolerated the procedure well without signs or symptoms of complications prior to transfer to the recovery area continued monitoring without incident. The patient was then transferred to the recovery area where they were observed for an appropriate period of time after the injection. The patient reported a VAS score of 9 prior to the procedure and a post- procedure VAS of 2. POST OP INSTRUCTIONS They were provided a Pain Log to continue to record their response to the target-specific procedure prior to their follow-up visit with their referring physician. Additionally, specific post-injection care instructions and a contact number to our office were provided if concerns arise regarding possible complications associated with the procedure are suspected.
== END 2024-09-11 10:02 | disposition home or self-care (01) ==
LOC: RAD 08:40
PROVIDERS: Family Provider Family Medicine; PCP Family Medicine; Referring Provider Physical Medicine & Rehabilitation; Visit Provider Physical Medicine & Rehabilitation
DX: M47.812 Spondylosis without myelopathy or radiculopathy, cervical region (principal)
CPT/HCPCS: 64490; 64491; 99152; J2250

== ENCOUNTER 2024-12-26 09:15 | Outpatient (CLI) | payer MEDICARE, OTHER, SELFPAY ==
[2024-12-26 10:00] VITALS: BP 140/71; PULSE 63; RESP 16; TEMP 36.3; O2SAT 95
[2024-12-26 10:23] VITALS: BP 163/69; PULSE 57; RESP 18; O2SAT 98
[2024-12-26] MEDS: LIDOCAINE 1% (PF) 5 ML INJ (10:24)
[2024-12-26 10:25] VITALS: BP 159/50; PULSE 53; RESP 18; O2SAT 98
[2024-12-26 10:33] VITALS: BP 159/75; PULSE 69; RESP 18; O2SAT 98
--- NOTE | 2024-12-26 12:19 | P.PCN_ITS ---
Date/Time/Diagnoses Date of procedure: 11/07/24 Time of procedure: 10:00 Pre-procedure diagnosis: Cervicothoracic radiculopathy Post-procedure diagnosis: same Procedure Notes Procedure: Interlaminar epidural steroid injection C7-T1 Indications: Cervicothoracic radiculopathy/pain Physician: Robles Tohmpson Total sedation minutes: 0 Complications: none Procedure in detail & Post-procedure care: Patient is here for the planned procedure today as noted. No significant change since the last office visit. For additional clinical scenario please see those office notes. Focused exam: Vital signs reviewed as charted on intake. Gen: Well developed. No acute distress. CV: RRR, no M/R/G Chest: Non-labored breathing, CTAB. Psych: Alert and well-oriented. Mood/Affect: normal. Patient suitable for the planned procedure today: Yes === The following procedure was performed in the office today: Cervical Epidural Steroid Injection with fluoroscopic guidance - Interlaminar approach (58400) Levels Treated: C7-T1 Approach: interlaminar Soft tissue: [1% lidocaine 2 mL] Test dose: 1% lidocaine 1 mL Injectate: [1.5 mL dexamethasone (10mg/mL), 1 mL lidocaine 1%, 1.5 mL normal saline] Fluoroscopy Agent: Isovue 300-M 1.5 mL Notes: Left paramedian approach. 3.5 in 20 gauge Touhy needle utilized and adequate. Preprocedure pain 5/10, postprocedure pain 0/10. Procedure: After discussing the risks, benefits, and alternatives to the procedure, the patient expressed understanding and wished to proceed. The risks include but are not limited to infection, allergic reaction, nerve damage, stroke, paralysis, epidural hematoma, syncope, headache, respiratory or cardiac arrest, spinal cord injury, and scar formation. Informed consent was obtained and all patient questions were answered. The patient was brought to the procedure suite and placed in the prone position. A pre-procedural pause was conducted to verify: correct patient identity, procedure to be performed and as applicable, correct side and site, correct pa tient position, and any special requirements. Using a paramedian approach from the side noted above, the region overlying the target was localized under fluoroscopic visualization and the soft tissues overlying this structure were infiltrated with the anesthetic listed above. With fluoroscopic guidance, a #20 gauge Tuohy needle (unless otherwise noted) was inserted into the epidural space using a paramedian approach. The epidural space was localized utilizing intermittent multiplanar fluoroscopic guidance and loss of resistance technique. After negative aspiration, the contrast noted abov e was injected into the epidural space and the flow of contrast was observed, confirming epidural spread without evidence of intravascular or intrathecal spread. Multi-planar radiographs were obtained for documentation purposes. A test dose of lidocaine was given and the patient was observed for 30-60 seconds. There were no adverse reactions noted. Subsequently, the injectate as noted above was administered into the level noted above. The patient tolerated the procedure well and was discharged after an appropriate period of observation. If there are any complications, the patient was in structed to call us. The patient is to follow-up with the requesting provider in 2-3 weeks/as planned. This note was compiled using voice recognition software and therefore may contain typos. Please contact the author with any questions or concerns.
== END 2024-12-26 10:40 | disposition home or self-care (01) ==
LOC: RAD 09:15
PROVIDERS: PCP Family Medicine; Referring Provider Physical Medicine & Rehabilitation; Visit Provider Physical Medicine & Rehabilitation
DX: M54.13 Radiculopathy, cervicothoracic region (principal)
CPT/HCPCS: 62321; J1100

== ENCOUNTER → 2025-01-08 08:13 | Outpatient (CLI) | payer MEDICARE, OTHER, SELFPAY ==
[2025-01-08 09:16] LABS: Prostate Specific Antigen < 0.064 ng/mL (0.10-4.00)
== END ==
PROVIDERS: PCP Family Medicine; Referring Provider Family Medicine; Visit Provider Urology
DX: C61 Malignant neoplasm of prostate (principal)
CPT/HCPCS: 36415; 84153

== ENCOUNTER → 2025-01-31 14:00 | Outpatient (CLI) | payer MEDICARE, OTHER, SELFPAY ==
[2025-01-31 15:02] LABS: Alanine Aminotransferase 22 IU/L (<50); Albumin 3.9 g/dL (3.5-5.0); Albumin Globulin Ratio 1.6 (1.0-2.8); Alkaline Phosphatase 96 U/L (38-126); Blood Urea Nitrogen 31 mg/dL (9-20); Calcium 8.9 mg/dL (8.4-10.2); Carbon Dioxide 28 mmol/L (22-32); Chloride 98 mmol/L (98-107); Estimated Glomerular Filt Rate 59 mL/min (>60); Globulin 2.5 g/dL (1.7-4.1); Glucose 111 mg/dL (70-99); HEMOLYSIS < 15 (0-50); Potassium 4.1 mmol/L (3.4-5.1); Sodium 132 mmol/L (137-145); Total Protein 6.4 g/dL (6.3-8.2)
== END ==
PROVIDERS: PCP Family Medicine; Referring Provider Family Medicine; Visit Provider Family Medicine
DX: I10 Essential (primary) hypertension (principal); N40.1 Benign prostatic hyperplasia with lower urinary tract symptoms; M47.812 Spondylosis without myelopathy or radiculopathy, cervical region; M50.323 Other cervical disc degeneration at C6-C7 level
CPT/HCPCS: 36415; 80053; 82043; 82570